=== PATIENT | female | born 1960 | race Caucasian/White ===

== ENCOUNTER → 2017-10-22 | Outpatient (CLI) | payer OTHER ==
[~2017-10-22] MED LIST: ALBU.083IS IH; ALBU3IS INH; ALBU90OI; ALBU90OI INH; ALBU90OI6 INH; ALPR.5 PO; AMLO5 PO; ASPI81CH PO; ASPI81EC PO; AZIT250 PO; Accuneb0.63 MG/3 INH; BACL10 PO; BENZ100A PO; CALACE667G PO; CALCA500CH PO; CALCIUM PO; CARI350; CARV6.25 PO; CILO50 PO; CLON.5 PO; CLOP75 PO; CYCL10 PO; CYCL25; DILT120ERA PO; DIPH12.5EL PO; DOXY100 PO; DULERA 100 MCG/13 GM INH; DULO30 PO; DULO60 PO; Desyrel150 MG; FLUSAL1005 IH; FLUSAL2505; Flonase 0.05% N16 GM; GABA300 PO; HYDACE5; HYDACE5325 PO; HYDCHL25 PO; LISI5 PO; METH5 PO; METO25ER PO; METO50ER PO; METTREX2.5 PO; Mucinex600 MG PO; NAPR220 PO; NAPR500 PO; NITR.4TPA TOP; NITR.6SL SL; OXYC10TA19 PO; PANT40 PO; PRAV20 PO; PRED10 PO; Prednisone20 MG PO; RXHYD5325 PO; SIMV10 PO; SPIRIVA RESPIMAT4 GM INH; TOPI50 PO; TRAZ50 PO; Ventolin/Prove6.7 GM INH
== END | disposition home or self-care (01) ==
LOC: LAB SHORT 08:22 → PLD 08:22
DX: D23.71 Other benign neoplasm of skin of right lower limb, including hip (principal)
CPT/HCPCS: 88305

== ENCOUNTER 2019-01-25 14:25 | Inpatient (IN) | payer OTHER ==
[~2019-01-25] VITALS: Ht 167.6 cm; Wt 85.4 kg
[~2019-01-25 14:25] MED LIST changes: +ATOR40TA PO; +CILO100 PO; +CORLANOR5 MG PO; +Isosorbide Mono30 MG PO; +NITR.8TP TOP; +Neurontin 300300 MG PO; +Nitrostat0.4 MG SL; +Paxil20 MG PO; +Tessalon Perle100 MG PO
[2019-01-25 15:13] LABS: BASOPHILS ABSOLUTE AUTO 0.02 K/mm3 (0.00-0.23); BASOPHILS PERCENT AUTO 0 % (0-2); EOSINOPHILS PERCENT AUTO 0 % (0-6); Hematocrit 38.2 % (33.0-51.0); Hemoglobin 12.4 g/dL (11.5-16.0); IMMATURE GRAN ABSOLUTE AUTO 0.15 K/mm3 (0.00-0.10); IMMATURE GRAN PERCENT AUTO 1 % (0-1); LYMPHOCYTES ABSOLUTE AUTO 1.02 K/mm3 (0.84-5.20); LYMPHOCYTES PERCENT AUTO 6 % (21-46); MONOCYTES ABSOLUTE AUTO 0.33 K/mm3 (0.16-1.47); MONOCYTES PERCENT AUTO 2 % (4-13); Mean Corpuscular HGB 32.5 pg (26.0-34.0); Mean Corpuscular HGB Conc 32.5 g/dL (31.5-36.5); Mean Corpuscular Volume 100 fL (80-100); Mean Platelet Volume 10.3 fL (9.1-12.4); NEUTROPHILS ABSOLUTE AUTO 14.83 K/mm3 (1.96-9.15); NEUTROPHILS PERCENT AUTO 91 % (41-73); Platelet Count 240 K/mm3 (150-400); RDW Coefficient Variation 14.5 % (11.7-14.2); RDW Standard Deviation 52.5 fL (35.1-46.3); Red Blood Cell Count 3.81 M/mm3 (3.80-5.20); White Blood Cell Count 16.35 K/mm3 (4.00-11.30)
[2019-01-25 15:29] LABS: Alanine Aminotransfer (ALT/SGP 26 U/L (12-78); Albumin, Blood 2.8 g/dL (3.4-5.0); Albumin/Globulin Ratio 0.7 (0.8-1.8); Alk Phos 83 U/L (50-136); Anion Gap 4 mmol/L (6-16); Aspartate Aminotrans (AST/SGOT 16 U/L (12-37); Bilirubin, Total 0.8 mg/dL (0.1-1.0); Blood Urea Nitrogen 11 mg/dL (8-24); Bun/Creatinine Ratio 13.4 (12.0-20.0); CO2, Blood 27 mmol/L (21-32); Calcium, Blood 9.2 mg/dL (8.5-10.1); Chloride, Blood 103 mmol/L (98-108); Creatinine, Blood 0.82 mg/dL (0.40-1.00); Glomerular Filtration Rate >60 (60-); Glucose, Blood 219 mg/dL (70-99); Potassium, Blood 4.1 mmol/L (3.5-5.5); Sodium, Blood 134 mmol/L (136-145); Total Protein, Blood 6.8 g/dL (6.4-8.2)
[2019-01-25 15:30] LABS: Troponin I <0.015 ng/mL (0.000-0.040)
[2019-01-25 19:16] LABS: International Normalized Ratio 0.98; Prothrombin Time Results 10.4 Sec (9.7-11.5)
[2019-01-26 03:43] LABS: BASOPHILS ABSOLUTE AUTO 0.02 K/mm3 (0.00-0.23); BASOPHILS PERCENT AUTO 0 % (0-2); EOSINOPHILS PERCENT AUTO 0 % (0-6); Hematocrit 37.1 % (33.0-51.0); Hemoglobin 11.8 g/dL (11.5-16.0); IMMATURE GRAN ABSOLUTE AUTO 0.14 K/mm3 (0.00-0.10); IMMATURE GRAN PERCENT AUTO 1 % (0-1); LYMPHOCYTES ABSOLUTE AUTO 0.95 K/mm3 (0.84-5.20); LYMPHOCYTES PERCENT AUTO 7 % (21-46); MONOCYTES ABSOLUTE AUTO 0.28 K/mm3 (0.16-1.47); MONOCYTES PERCENT AUTO 2 % (4-13); Mean Corpuscular HGB 32.7 pg (26.0-34.0); Mean Corpuscular HGB Conc 31.8 g/dL (31.5-36.5); Mean Platelet Volume 10.3 fL (9.1-12.4); NEUTROPHILS ABSOLUTE AUTO 13.32 K/mm3 (1.96-9.15); NEUTROPHILS PERCENT AUTO 91 % (41-73); Platelet Count 241 K/mm3 (150-400); RDW Coefficient Variation 14.5 % (11.7-14.2); Red Blood Cell Count 3.61 M/mm3 (3.80-5.20); White Blood Cell Count 14.71 K/mm3 (4.00-11.30)
[2019-01-26 03:44] LABS: Mean Corpuscular Volume 103 fL (80-100)
[2019-01-26 03:58] LABS: Anion Gap 5 mmol/L (6-16); Blood Urea Nitrogen 10 mg/dL (8-24); Bun/Creatinine Ratio 13.1 (12.0-20.0); CO2, Blood 28 mmol/L (21-32); Calcium, Blood 8.7 mg/dL (8.5-10.1); Chloride, Blood 108 mmol/L (98-108); Creatinine, Blood 0.77 mg/dL (0.40-1.00); Glomerular Filtration Rate >60 (60-); Glucose, Blood 149 mg/dL (70-99); Potassium, Blood 4.3 mmol/L (3.5-5.5); Sodium, Blood 141 mmol/L (136-145)
--- NOTE | 2019-01-26 05:53 | NUR ---
END OF SHIFT SUMMARY PT TRANSFERRED TO UNIT FROM ED. AUDIBLY COARSE LUNG SOUNDS, PT WITHOUT RESP DISTRESS. SPO2 >94% ON 2LNC. HR 90', BP STABLE. AXO X4. ORIENTED TO ROOM. BREATHING TREATMENTS PRN PROVIDED. FLUTTER VALVE ENCOURAGED. ADMIT PACKET COMPLETE. PT'S HR SORAIDA INTO 130'S PER MONITOR, SEE PROVIDER NOTE. ULTIMATELY, METOPROLOL 5 IV GIVEN, HR HAS RETURNED TO 90'S AND HAS MAINTAINED THERE, BP STABLE. NEW IV PLACED. PT HAS BEEN RESTING T/O SHIFT POST ASSESMENT. CALL LIGHT WITHIN REACH. USES APPROPRIATELY. PT CURRENTLY SITTING IN CHAIR. WILL CONTINUE TO MONITOR UNTIL SHIFT CHANGE.
--- NOTE | 2019-01-26 15:38 | NUR ---
NOTE PT AWAKE AND ALERT. SR/ST. NO SVT TODAY. CALLED PT PHARMACY AND CLARIFIED SEVERAL OF HER HOME MEDICATIONS. PT UP SBA TO BATHROOM D/T IV POLE. PT HAS CHRONIC PAIN. CALLED DR CAMEJO AND REQUESTED PT HOME PAIN REGIME. ORDERS RECEIVED. CONTINUE POT.
--- NOTE | 2019-01-26 20:30 | NUR ---
NOTE PT UP AD FEDER[place]. SR. NO SVT TODAY. PT LUNGS WITH EXP. WHEEZES. AUDIBLE WHEEZES WHEN SHE WALKS TO THE BATHROOM. SHE RELATED THAT SHE IS FEELING BETTER THAN YESTERDAY. DRY COUGH. NON PRODUCTIVE. SHE DID ASK TO GO OUT AND SMOKE. SHE SAID THAT SMOKING HELPS HER COUGH. VSS. MEDICATED FOR PAIN X1. PT RELATED THAT IT WAS EFFECTIVE FOR HER PAIN. CONTINUE POT.
--- NOTE | 2019-01-27 08:06 | NUR ---
END OF SHIFT SUMMARY NO ACUTEN CHANGES THIS SHIFT. HR REMAINED IN LOW 100'S, BP STABLE. NO INSTANCE OF SVT OR CP. BREATHING CONTINUES WITH EXP WHEEZES BUT DOES SOUND SOMEWHAT LESSENED. PRN BREATHING TREATMENTS AND TESSLON PERLS. FLUIDS CONTINUE TO INFUSE. PT INDEPENDENT IN ROOM. TITRATED TO 3LNC LAST NIGHT FOR COMFORT. OTHERWISE, PT SLEPT T/O NIGHT. USED CALL LIGHT APPROPRIATELY. REPORT GIVEN TO ONCOMING RN.
--- NOTE | 2019-01-27 17:49 | NUR ---
summary The pt has been alert, oriented, and cheerful today, without any complaints except for requests for pain medication (she takes these regularly at home) and once requested tesslon perle for her persistent, non productive but moist-sounding cough. She is using the flutter valve, but states that she has not been able to produce any sputum with her cough. She has been ambulatory to the bathroom, taking her IV pole with her, which is delivering continuous IV fluids per MD orders. Taking IV antiobiotics without any noted side effects. The pt states that she normally cannot have a bowel movement when she is not at home. States this occured when she was in hospital for the of her daughter many years ago, and happens even when she goes camping for a week. Denies discomfort, and states that she always goes back to regularity as soon as she is in her usual environment. Heart rate has been 90s to low 100s and blood pressure in the 100-125 range systolically. She was also weaned off of her oxygen today. States that she was prescribed oxygen once, but when she had an spo2 of 90% and no lower while at a doctor's visit, the oxgyen was discontinued by her insurance provider.
--- NOTE | 2019-01-27 19:29 | NUR ---
Bedside report was given to Deanna Bauer RN. The pt states that she just had an episode of sharp pain on her left chest, without shortness of breath, which resolved spontaneously. States that this is not an unusual experience for her as this occurs regularly. Will check Telemetry for events.
--- NOTE | 2019-01-27 19:35 | NUR ---
Spoke with security monitor tech, Micky Ferrer, who informs me that the pt's heart rate has been increasing and is sustaining at 125 bpm at this time, sinus tachycardia. Call to Lisa to request giving Toprol XL 50 mg now to bring the pt's total dose today to 100 mg, as ordered by Dr. Salazar today, to start tomorrow as 100mg Toprol XL daily.
[2019-01-27 23:34] LABS: Influenza A Negative (NEGATIVE); Influenza B Negative (NEGATIVE)
--- NOTE | 2019-01-28 05:21 | NUR ---
SHIFT SUMMARY PT SLEEPING IN ROOM COMFORTABLY AT THIS TIME. NO ACUTE CHANGES IN STATUS T/O NIGHT. PT SLEPT IN SHORT PERIODS, REPORTS SLEEPING POORLY DUE TO COUGH. PT WAS MEDICTED T/O NIGHT FOR CHRONIC PAIN, AND CHEST WALL PAIN R/T COUGHING. RESP EVEN UNLABORED AT REST, SOME DYSPNEA W/ EXERTION, SATS >92% ON RA. PT REQUESTED NC AT BEDSIDE W/ SMALL AMOUNT OF 02 FOR AFTER COUGHING EPISODES TO RECOVER. PT USING NC PRN. DENIES ANY CP, BUT DOES REPORT SOME MUSCULOSKELETAL PAIN FROM COUGHING. PT HAS KPAD IN PLACE TO HELP WITH COMFORT. NS INFUSING IN PIV AT 100ML/HR. PT ABLE TO STAND AND WALK TO RR W/O ASSIST, CALLS APPROPRIATELY FOR CORD MANAGMENT TO GET UP. CALL LIGHT IN REACH.
--- NOTE | 2019-01-28 12:35 | NUR ---
Spoke with the pt this morning regarding her pain in the left lower rib cage area. She states it does not hurt unless she moves or coughs. Medication for pain is effective, she states. Other chronic pain areas are not problamatic for her at this time. She has c/o difficulty expectorating sputum, and her cough is moist but non productive. States thepain also keeps her from coughing as much. This morning her spo2 was greater than 90% but she felt tight and like she needed a tiny bit of oxygen. She placed it on at 1 l/min for her own comfort. Dyspnea noted with ativity.
--- NOTE | 2019-01-28 16:47 | NUR ---
The pt is no longer feeling like she needs the supplemental oxgyen. Heart rate has remained less than 110 bpm today. States that she still feels some swelling, but continuous IVF were discontinued. Sheis eating and drinking well; ambulatory to the bathroom to void.
--- NOTE | 2019-01-29 04:57 | NUR ---
SHIFT SUMMARY PT SLEEEPING IN ROOM COMFORTABLY AT THIS TIME. NO ACUTE CHANGES IN STATUS T/O NIGHT. TP SLEPT WELL, REPORTS FEWER COUGHING EPISODES T/O NIGHT. PT ONLY ASKED FOR PAIN MEDS ONCE DURING SHIFT. RESP EVEN UNLABORED ON 1L O2 VIA NC, FOR PT COMFORT DURING SLEEP. DENIED ANY CP, REPORTED SOME RIB PAIN D/T COUGHING. PIV IS SL AT THIS TIME. PT ABLE TO STAND AND WALK TO RR W/O ASSIST. CALL LIGHT IN REACH.
--- NOTE | 2019-01-29 07:35 | NUR ---
ASSUMED CARE OF PT- REPORT COMPLETED WITH NIGHT CARLYN MYERS. PER REPORT PT CAN PROBABLY BE SWITCHED TO MEDICAL STATUS TODAY; WILL TALK TO DR CAMEJO ON MORNING ROUNDS. PT ALERT AND ORIENTED, INDEPENDENT IN THE ROOM. IV IS SL EXCEPT FOR ABX TX. PT CURRENTLY ON 1L VIA NC AT THIS TIME NEEDED (WHEN SHE HAS A COUGHING FIT). PT HAS BEEN C/O RIB PAIN RELATED TO THE COUGH CHEST XRAY NEGATIVE FOR FRACTURE. PT ON CHRONIC OXY 10MG, PAIN MEDS MANAGED WITH A PAIN SPECIALIST.
--- NOTE | 2019-01-29 18:43 | NUR ---
SHIFT SUMMARY- PT ALERT AND ORIENTED AND INDEPENDENT IN THE ROOM. PT SWITCHED TO MED NO TELE. CALL LIGHT IN REACH FAMILY AT THE BEDSIDE. PT HAS CHRONIC PAIN REQUIRING PAIN MANAGEMENT. PT TELE DC'D PER ORDER. PT RUNS A LITTLE TACHY IN THE LOW 100'S. HOME DOSE METOPROLOL RESUMED THIS MORNING. PT HAD A FULL SHOWER THIS AFTERNOON, PT BECAME SOB AFTER SHOWER WAS COMPLETED, O2 SATS 93% ON ROOM AIR HR 126. CALLED FOR BREATHING Tx AND GOT PT BACK TO BED HR IN THE ONE TEENS ONCE PT SETTLED BACK INTO BED POST BREATHING Tx. PT HAS NO S&S OF DISTRESS AT THIS TIME.
--- NOTE | 2019-01-30 05:19 | NUR ---
SHIFT SUMMARY PT SLEEPING IN ROOM COMFORTABLY AT THIS TIME. NO ACUTE CHNAGES IN STATUS T/O NIGHT. PT SLEPT WELL AFTER MIDNIGHT, REPORTS HAD A HARDER TIME SLEEPING TONIGHT. PT WAS MEDICATED TWICE FOR PAIN PER EMAR. FAMILY IN ROOM TO VISIT PT UNTIL MIDNIGHT. RESP EVEN UNLABORED AT REST, SOME DYSPNEA W/ EXERTION. SATS > 92%. PT REQUESTING O2 VIA NC FOR DYSPNIC EPSIDOES AFTER COUGHING. PT CONTINUES TO C/O PAIN IN RIBS FROM COUGHING. REPORTS STILL UNABLE TO COUGH UP SPUTUM. DENIES PAIN OTHER THAN CHRONIC BACK/HIP PAIN. PT CONCERNED ABOUT EDEMA IN UPPER THIGHS, PT EDUCATED AM PROVIDER WOULD BE NOTIFIED. CALL LIGHT IN REACH.
[2019-01-30] MEDS ORDERED: CLOT10 SS (10:16)
[2019-01-30] MEDS ORDERED: DOXY100 PO (10:17)
[2019-01-30] MEDS ORDERED: NICO21TP TOP (10:18)
[2019-01-30] MEDS ORDERED: Prednisone10 MG (10:21)
[2019-01-30] MEDS ORDERED: SPIR25 PO (10:22)
--- NOTE | 2019-01-30 11:36 | NUR ---
UPDATE PT ALERT AND ORIENTED. VS STABLE. O2 SATS REMAIN ABOVE 90% ON 1L NC. LS WHEEZES THROUGHOUT. DR. COLEMAN IN THIS AM WITH ORDERS FOR DISCHARGE. PT PARTICIPATED IN HOME O2 EVAL. DISCHARGE INSTRUCTIONS PROVIDED. NEW MEDICATIONS EDUCATED TO PT. ALL QUESTIONS ANSWERED. IV REMOVED AND INTACT. PT AWAITING OXYGEN TO BE BROUGHT IN AND THEN SHE WILL LEAVE VIA WC.
== END 2019-01-30 14:02 | disposition home or self-care (01) | DRG 871 ==
LOC: ER 14:25 → PCU 18:17
PROVIDERS: Emergency Medicine; Family Medicine; ADMIT Hospitalist
DX: A41.9 Sepsis, unspecified organism (principal); J18.9 Pneumonia, unspecified organism; J96.21 Acute and chronic respiratory failure with hypoxia; J44.0 Chronic obstructive pulmonary disease with (acute) lower respiratory infection; J44.1 Chronic obstructive pulmonary disease with (acute) exacerbation; I47.1 Supraventricular tachycardia; E87.1 Hypo-osmolality and hyponatremia; M48.50XA Collapsed vertebra, not elsewhere classified, site unspecified, initial encounter for fracture; F17.210 Nicotine dependence, cigarettes, uncomplicated; Z95.1 Presence of aortocoronary bypass graft
CPT/HCPCS: 36415; 71046; 80048; 80053; 83036; 83605; 83880; 84484; 85025; 85610; 85730; 87040; 87804; 93005; 93010; 94640; 94664; 94667; 94760; 94761; 96365; 96366; 96375; 98960; 99285-25; 99407; J2930; J7030; J7060; J7512; Q0163

== ENCOUNTER 2019-03-03 12:48 | Emergency (ER) | payer OTHER ==
[~2019-03-03] VITALS: Ht 170.2 cm; Wt 83.9 kg
[~2019-03-03 12:48] MED LIST changes: +CLOT10 SS; +NICO21TP TOP; +Prednisone10 MG; +SPIR25 PO
[2019-03-03 13:48] LABS: BASOPHILS ABSOLUTE AUTO 0.07 K/mm3 (0.00-0.23); BASOPHILS PERCENT AUTO 1 % (0-2); EOSINOPHILS ABSOLUTE AUTO 0.13 K/mm3 (0.00-0.68); EOSINOPHILS PERCENT AUTO 1 % (0-6); Hematocrit 39.1 % (33.0-51.0); Hemoglobin 12.6 g/dL (11.5-16.0); IMMATURE GRAN ABSOLUTE AUTO 0.08 K/mm3 (0.00-0.10); IMMATURE GRAN PERCENT AUTO 1 % (0-1); LYMPHOCYTES ABSOLUTE AUTO 2.64 K/mm3 (0.84-5.20); LYMPHOCYTES PERCENT AUTO 29 % (21-46); MONOCYTES ABSOLUTE AUTO 0.73 K/mm3 (0.16-1.47); MONOCYTES PERCENT AUTO 8 % (4-13); Mean Corpuscular HGB 32.6 pg (26.0-34.0); Mean Corpuscular HGB Conc 32.2 g/dL (31.5-36.5); Mean Corpuscular Volume 101 fL (80-100); Mean Platelet Volume 10.2 fL (9.1-12.4); NEUTROPHILS PERCENT AUTO 60 % (41-73); NRBC ABSOLUTE 0.02 K/mm3 (0.00-0.02); NRBC Auto 0.2 /100 WBC (0.0-0.2); Platelet Count 291 K/mm3 (150-400); RDW Standard Deviation 55.4 fL (35.1-46.3); Red Blood Cell Count 3.87 M/mm3 (3.80-5.20); White Blood Cell Count 9.05 K/mm3 (4.00-11.30)
[2019-03-03 14:14] LABS: Alanine Aminotransfer (ALT/SGP 33 U/L (12-78); Albumin, Blood 3.4 g/dL (3.4-5.0); Albumin/Globulin Ratio 0.9 (0.8-1.8); Alk Phos 108 U/L (50-136); Anion Gap 5 mmol/L (6-16); Aspartate Aminotrans (AST/SGOT 17 U/L (12-37); Bilirubin, Total 0.3 mg/dL (0.1-1.0); Blood Urea Nitrogen 7 mg/dL (8-24); Bun/Creatinine Ratio 8.8 (12.0-20.0); CO2, Blood 25 mmol/L (21-32); Calcium, Blood 9.3 mg/dL (8.5-10.1); Chloride, Blood 109 mmol/L (98-108); Creatinine, Blood 0.79 mg/dL (0.40-1.00); Globulin, Blood 3.6 g/dL (2.2-4.0); Glomerular Filtration Rate >60 (60-); Glucose, Blood 188 mg/dL (70-99); Potassium, Blood 3.8 mmol/L (3.5-5.5); Sodium, Blood 139 mmol/L (136-145); Troponin I <0.015 ng/mL (0.000-0.040)
== END 2019-03-03 16:30 | disposition home or self-care (01) ==
LOC: ER 12:48
PROVIDERS: Physician Assistant
DX: M25.561 Pain in right knee (principal); J44.9 Chronic obstructive pulmonary disease, unspecified; F17.200 Nicotine dependence, unspecified, uncomplicated; Z79.899 Other long term (current) drug therapy; Z88.5 Allergy status to narcotic agent; Z88.0 Allergy status to penicillin
CPT/HCPCS: 36415; 80053; 84484; 85025; 93971; 99284-25

== ENCOUNTER → 2019-03-30 | Outpatient (CLI) | payer OTHER | END | disposition home or self-care (01) | LOC: LAB SHORT 17:38 → LAB EV 17:38 | DX: R35.0 Frequency of micturition (principal) | CPT/HCPCS: 87077; 87086; 87186 ==

== ENCOUNTER → 2019-06-29 | Outpatient (CLI) | payer SELFPAY ==
[2019-06-29 14:50] LABS: BASOPHILS ABSOLUTE AUTO 0.09 K/mm3 (0.00-0.23); BASOPHILS PERCENT AUTO 1 % (0-2); EOSINOPHILS ABSOLUTE AUTO 0.17 K/mm3 (0.00-0.68); EOSINOPHILS PERCENT AUTO 1 % (0-6); Hematocrit 38.4 % (33.0-51.0); Hemoglobin 12.7 g/dL (11.5-16.0); IMMATURE GRAN ABSOLUTE AUTO 0.07 K/mm3 (0.00-0.10); IMMATURE GRAN PERCENT AUTO 0 % (0-1); LYMPHOCYTES ABSOLUTE AUTO 2.68 K/mm3 (0.84-5.20); LYMPHOCYTES PERCENT AUTO 15 % (21-46); MONOCYTES ABSOLUTE AUTO 0.85 K/mm3 (0.16-1.47); MONOCYTES PERCENT AUTO 5 % (4-13); Mean Corpuscular HGB 31.1 pg (26.0-34.0); Mean Corpuscular HGB Conc 33.1 g/dL (31.5-36.5); Mean Corpuscular Volume 94 fL (80-100); Mean Platelet Volume 10.6 fL (9.1-12.4); NEUTROPHILS ABSOLUTE AUTO 13.53 K/mm3 (1.96-9.15); NEUTROPHILS PERCENT AUTO 78 % (41-73); Platelet Count 323 K/mm3 (150-400); RDW Coefficient Variation 13.3 % (11.7-14.2); RDW Standard Deviation 45.7 fL (35.1-46.3); Red Blood Cell Count 4.09 M/mm3 (3.80-5.20); White Blood Cell Count 17.39 K/mm3 (4.00-11.30)
[2019-06-29 15:09] LABS: Alanine Aminotransfer (ALT/SGP 23 U/L (12-78); Albumin, Blood 3.3 g/dL (3.4-5.0); Albumin/Globulin Ratio 0.7 (0.8-1.8); Alk Phos 132 U/L (40-126); Anion Gap 10 mmol/L (6-16); Aspartate Aminotrans (AST/SGOT 21 U/L (12-37); Bilirubin, Total 0.3 mg/dL (0.1-1.0); Blood Urea Nitrogen 8 mg/dL (8-24); Bun/Creatinine Ratio 7.1 (12.0-20.0); CO2, Blood 30 mmol/L (21-32); Calcium, Blood 9.1 mg/dL (8.5-10.1); Chloride, Blood 97 mmol/L (98-108); Creatinine, Blood 1.12 mg/dL (0.40-1.00); Globulin, Blood 4.6 g/dL (2.2-4.0); Glomerular Filtration Rate 50 (60-); Glucose, Blood 123 mg/dL (70-99); Potassium, Blood 2.8 mmol/L (3.5-5.5); Sodium, Blood 137 mmol/L (136-145); Total Protein, Blood 7.9 g/dL (6.4-8.2)
[2019-06-29 15:10] LABS: Troponin I <0.017 ng/mL (0.000-0.040)
== END | disposition home or self-care (01) ==
LOC: LAB SHORT 14:46 → LAB EV 14:46
PROVIDERS: Physician Assistant Medical
DX: R07.9 Chest pain, unspecified (principal)
CPT/HCPCS: 80053; 84484; 85025; 85379

== ENCOUNTER → 2019-07-24 | Outpatient (CLI) | payer SELFPAY ==
[2019-07-24 15:30] LABS: Albumin, Blood 3.6 g/dL (3.4-5.0); Albumin/Globulin Ratio 0.9 (0.8-1.8); Bilirubin, Total 0.3 mg/dL (0.1-1.0); Bun/Creatinine Ratio 6.8 (12.0-20.0); Calcium, Blood 9.5 mg/dL (8.5-10.1); Creatinine, Blood 1.18 mg/dL (0.40-1.00); Globulin, Blood 4.1 g/dL (2.2-4.0); Potassium, Blood 3.7 mmol/L (3.5-5.5); Total Protein, Blood 7.7 g/dL (6.4-8.2)
== END | disposition home or self-care (01) ==
LOC: LAB SHORT 15:10 → LAB EV 15:10
PROVIDERS: Physician Assistant
DX: E87.6 Hypokalemia (principal)
CPT/HCPCS: 80053

== ENCOUNTER 2022-05-16 16:59 | Emergency (ER) | payer OTHER ==
[~2022-05-16] VITALS: Ht 170.2 cm; Wt 59.9 kg
[~2022-05-16 16:59] MED LIST changes: +ATORVASTATIN CA40 MG PO; +Amitriptyline H10 MG PO; +FLUT1DIS8 INH; +IPRAT-ALBUT 0.5-3 ML INH; +LEVFLO500 PO; +NARCAN4 M1 NS; +NYSTATIN SUSPENSION MT; +TAMIFLU PO
[2022-05-16 18:06] LABS: BASOPHILS PERCENT AUTO 1 % (0-2); EOSINOPHILS ABSOLUTE AUTO 0.27 K/mm3 (0.00-0.68); EOSINOPHILS PERCENT AUTO 2 % (0-6); Hemoglobin 13.2 g/dL (11.5-16.0); IMMATURE GRAN PERCENT AUTO 1 % (0-1); LYMPHOCYTES ABSOLUTE AUTO 2.54 K/mm3 (0.84-5.20); LYMPHOCYTES PERCENT AUTO 18 % (21-46); MONOCYTES ABSOLUTE AUTO 0.63 K/mm3 (0.16-1.47); MONOCYTES PERCENT AUTO 5 % (4-13); Mean Corpuscular HGB 31.1 pg (26.0-34.0); Mean Corpuscular Volume 94 fL (80-100); NEUTROPHILS PERCENT AUTO 74 % (41-73); Platelet Count 323 K/mm3 (150-400); RDW Coefficient Variation 15.4 % (11.7-14.2); Red Blood Cell Count 4.25 M/mm3 (3.80-5.20); White Blood Cell Count 14.14 K/mm3 (4.00-11.30)
[2022-05-16 18:35] LABS: Albumin, Blood 2.9 g/dL (3.4-5.0); Albumin/Globulin Ratio 0.6 (0.8-1.8); Bilirubin, Total 0.5 mg/dL (0.1-1.0); Bun/Creatinine Ratio 16.6 (12.0-20.0); Calcium, Blood 10.2 mg/dL (8.5-10.1); Creatinine, Blood 0.6 mg/dL (0.40-1.00); Globulin, Blood 4.8 g/dL (2.2-4.0); Potassium, Blood 3.9 mmol/L (3.5-5.5); Total Protein, Blood 7.7 g/dL (6.4-8.2)
[2022-05-16 19:07] LABS: Influenza A, PCR NEGATIVE (NEGATIVE); Influenza B, PCR NEGATIVE (NEGATIVE); Resp Syncytial Virus, PCR NEGATIVE (NEGATIVE); SARS-Cov-2 (COVID-19) PCR, MMC NEGATIVE (NEGATIVE)
[2022-05-16] MEDS ORDERED: METPRE4DP PO (22:05)
[2022-05-16] MEDS ORDERED: AZIT250 PO (22:05)
== END 2022-05-16 22:20 | disposition home or self-care (01) ==
LOC: ER 16:59
PROVIDERS: Emergency Medicine
DX: J44.0 Chronic obstructive pulmonary disease with (acute) lower respiratory infection (principal); J18.9 Pneumonia, unspecified organism; J44.1 Chronic obstructive pulmonary disease with (acute) exacerbation; F17.210 Nicotine dependence, cigarettes, uncomplicated; Z88.0 Allergy status to penicillin; Z88.5 Allergy status to narcotic agent; Z88.2 Allergy status to sulfonamides; Z79.899 Other long term (current) drug therapy; Z79.52 Long term (current) use of systemic steroids
CPT/HCPCS: 0241U; 36415; 71046; 71260; 80053; 83605; 83880; 84484; 85025; 85379; 93005; 93010; 94640; 94664; 96374; 99285-25; A9270; J2930; Q9967

== ENCOUNTER 2022-12-31 00:59 | Inpatient (IN) | payer OTHER ==
[~2022-12-31] VITALS: Ht 160 cm; Wt 155.7 kg
[2022-12-31] VITALS (8 sets, daily range): BP systolic 93–127; BP diastolic 62–84
[~2022-12-31 00:59] MED LIST changes: +METPRE4DP PO
[2022-12-31 01:17] LABS: BASOPHILS ABSOLUTE AUTO 0.07 K/mm3 (0.00-0.23); BASOPHILS PERCENT AUTO 0 % (0-2); EOSINOPHILS ABSOLUTE AUTO 0.01 K/mm3 (0.00-0.68); EOSINOPHILS PERCENT AUTO 0 % (0-6); Hematocrit 42.4 % (33.0-51.0); IMMATURE GRAN ABSOLUTE AUTO 0.31 K/mm3 (0.00-0.10); IMMATURE GRAN PERCENT AUTO 1 % (0-1); LYMPHOCYTES ABSOLUTE AUTO 3.23 K/mm3 (0.84-5.20); LYMPHOCYTES PERCENT AUTO 10 % (21-46); MONOCYTES ABSOLUTE AUTO 1.03 K/mm3 (0.16-1.47); MONOCYTES PERCENT AUTO 3 % (4-13); Mean Corpuscular HGB 30.6 pg (26.0-34.0); Mean Corpuscular Volume 93 fL (80-100); Mean Platelet Volume 10.5 fL (9.1-12.4); NEUTROPHILS ABSOLUTE AUTO 26.88 K/mm3 (1.96-9.15); NEUTROPHILS PERCENT AUTO 85 % (41-73); Platelet Count 291 K/mm3 (150-400); RDW Coefficient Variation 14.4 % (11.7-14.2); Red Blood Cell Count 4.57 M/mm3 (3.80-5.20); White Blood Cell Count 31.53 K/mm3 (4.00-11.30)
[2022-12-31 01:20] LABS: Base Excess Venous 6.8 mmol/L; Bicarbonate Venous 28.9 mmol/L (24.0-30.0); PCO2 Venous 44.7 mmHg (38-42); pH Blood Venous 7.45 (7.34-7.37)
[2022-12-31 02:39] LABS: Influenza A, PCR NEGATIVE (NEGATIVE); Influenza B, PCR NEGATIVE (NEGATIVE); Resp Syncytial Virus, PCR NEGATIVE (NEGATIVE); SARS-Cov-2 (COVID-19) PCR, MMC NEGATIVE (NEGATIVE)
[2022-12-31 02:53] LABS: Albumin, Blood 2.8 g/dL (3.4-5.0); Albumin/Globulin Ratio 0.5 (0.8-1.8); Bilirubin, Total 0.5 mg/dL (0.1-1.0); Bun/Creatinine Ratio 12.7 (12.0-20.0); Calcium, Blood 9.9 mg/dL (8.5-10.1); Creatinine, Blood 0.87 mg/dL (0.40-1.00); Globulin, Blood 5.4 g/dL (2.2-4.0); Potassium, Blood 4.1 mmol/L (3.5-5.5); Total Protein, Blood 8.2 g/dL (6.4-8.2)
[2022-12-31] MEDS ORDERED: NITR.4SL SL (04:59)
[2022-12-31] MEDS ORDERED: CILO100 PO (05:00)
[2022-12-31] MEDS ORDERED: Isosorbide Mono30 MG PO (05:03)
[2022-12-31] MEDS ORDERED: BENZ100A PO (05:03)
[2022-12-31] MEDS ORDERED: SPIR50 PO (05:04)
[2022-12-31] MEDS ORDERED: Flonase 0.05% N16 GM (05:04)
[2022-12-31] MEDS ORDERED: GABA400 PO (05:05)
[2022-12-31] MEDS ORDERED: MAGCIT300 PO (05:08)
--- NOTE | 2022-12-31 06:44 | NUR ---
ARRIVAL TO PCU/SHIFT SUMMARY RECEIVED REPORT FROM CLINICAL INFORMATICS DIRECTOR ES ESCALERA, PT SHORTLY ARRIVED TO PCU ~0435 THIS AM. TRANSFERRED FROM ER [facility] TO [facility] BED VIA 1 STAFF ASSIST. A/Ox4 AND COOPERATIVE WITH CARE. ANSWERS QUESTIONS APPROPRIATELY AND ABLE TO MAKE HER NEEDS KNOWN. CARDIAC, ARRIVED ST 120-130'S, DENIES ANY CP, PRESSURE, OR DIZZINESS. SBP SOFT BUT STABLE RANGING 90-100'S WITH MAP >65. INTERMITTENT PVC'S NOTED. RESPIRATORY, ARRIVED ON 5L VIA NC SATURATING 92-93%. HAS SINCE BEEN TIRATED DOWN TO 3-4L VIA NC. INTERMITTENT MOIST COUGH BOTED WITH BILAT. CRACKLES HEARD IN THE LUNG BASES. DYSPNEA NOTED WITH EXERTION WELL TACYPNEA. RECOVERS WELL THOUGH. GI/, ABLE TO AMBULATE TO BSC TO VOID/BM. BS PRESENT IN ALL QUADRANTS, DENIES ABD PAIN AT THIS TIME. ASSESSED PT FOR RISKS OF ANY IGNITION SOURCES WELL BEHAVIORS FOR INCREASED RISKS OF FIRE DANGER. PT EDUCATED ON COMMON SOURCES OF IGNITION WELL NEED TO KEEP A SAFE ENVIRONMENT. PT VOICED UNDERSTANDING. NO NEW ORDERS AT THIS TIME, WILL REPORT TO ONCOMING RN. RONNY MOMIN OF THIS NOTE.
--- NOTE | 2022-12-31 17:24 | NUR ---
SHIFT SUMMARY PT REMAINS ALERT AND ORIENTED. BP STABLE. O2 SATS REMAIN ABOVE 90% ON 3L NC. HR REMAINS SINUS TACH 110-120'S. PT COMPLAINS OF OCCASIONAL BACK PAIN THAT IS CHRONIC AND MEDICATED PER EMAR. PT PROVIDED RECLINER FOR COMFORT. PT REQUESTED PUREWICK DUE TO WORK OF BREATHING WITH ACTIVITY. WILL CONTINUE TO MONITOR AND REPORT TO ONCOMING RN
[2022-12-31] MEDS ORDERED: ZANAFLEX413 PO (20:23)
[2022-12-31] MEDS ORDERED: MONT10T PO (20:24)
[2022-12-31] MEDS ORDERED: CLOBETASOL EMOL15 G1 (22:10)
--- NOTE | 2023-01-01 00:41 | NUR ---
PHYSICIAN COMMUNICATION ~2300 THIS SHIFT, PT'S HR NOTED TO BE SUSTAINING IN THE 120-130 RANGE WITH INTERMITTENT JUMPS INTO THE 140'S. PT DENIES CP, PRESSURE, PALPITATIONS, OR DIZZINESS AT THE TIME. NIGHT RESIDENT DR. RICE NOTIFIED TO WHICH PROVIDER CAME TO BEDSIDE TO EVALUATE PT. NO NEW ORDERS GIVEN AFTER PROVIDER ASSESSMENT.
[2023-01-01 03:50] VITALS: BP 104/61
[2023-01-01 04:04] LABS: BASOPHILS ABSOLUTE AUTO 0.04 K/mm3 (0.00-0.23); BASOPHILS PERCENT AUTO 0 % (0-2); EOSINOPHILS ABSOLUTE AUTO 0.01 K/mm3 (0.00-0.68); EOSINOPHILS PERCENT AUTO 0 % (0-6); Hematocrit 36.6 % (33.0-51.0); Hemoglobin 12.4 g/dL (11.5-16.0); IMMATURE GRAN ABSOLUTE AUTO 0.13 K/mm3 (0.00-0.10); IMMATURE GRAN PERCENT AUTO 1 % (0-1); LYMPHOCYTES ABSOLUTE AUTO 1.22 K/mm3 (0.84-5.20); LYMPHOCYTES PERCENT AUTO 6 % (21-46); MONOCYTES ABSOLUTE AUTO 0.46 K/mm3 (0.16-1.47); MONOCYTES PERCENT AUTO 2 % (4-13); Mean Corpuscular HGB 30.8 pg (26.0-34.0); Mean Corpuscular HGB Conc 33.9 g/dL (31.5-36.5); Mean Corpuscular Volume 91 fL (80-100); Mean Platelet Volume 10.6 fL (9.1-12.4); NEUTROPHILS ABSOLUTE AUTO 20.07 K/mm3 (1.96-9.15); NEUTROPHILS PERCENT AUTO 92 % (41-73); Platelet Count 261 K/mm3 (150-400); RDW Coefficient Variation 14.2 % (11.7-14.2); RDW Standard Deviation 47.9 fL (35.1-46.3); Red Blood Cell Count 4.02 M/mm3 (3.80-5.20); White Blood Cell Count 21.93 K/mm3 (4.00-11.30)
[2023-01-01 04:34] LABS: Albumin, Blood 2.5 g/dL (3.4-5.0); Albumin/Globulin Ratio 0.6 (0.8-1.8); Bilirubin, Total 0.3 mg/dL (0.1-1.0); Calcium, Blood 9.6 mg/dL (8.5-10.1); Creatinine, Blood 0.84 mg/dL (0.40-1.00); Globulin, Blood 4.3 g/dL (2.2-4.0); Magnesium, Blood 2.5 mg/dL (1.6-2.4); Phosphorus, Blood 3.2 mg/dL (2.5-4.9); Potassium, Blood 4.7 mmol/L (3.5-5.5); Total Protein, Blood 6.8 g/dL (6.4-8.2)
--- NOTE | 2023-01-01 06:44 | NUR ---
SHIFT SUMMARY A/Ox4 AND COOPERATIVE WITH CARE. ANSWERS QUESTIONS APPROPRIATELY AND ABLE TO MAKE HER NEEDS KNOWN. CAN BE IRRITABLE WITH STAFF AT TIMES, BUT NO ACUTE EVENTS OVERNIGHT. CARDIAC, REMAINS IN ST 120-130'S WITH INTERMITTENT PVC'S. OCCASIONALLY TOUCHES THE 140'S, BUT DOES NOT SUSTAIN. SEE PHYSICIAN COMMUNICATION NOTE FOR MORE DETAILS. DENIES CP, PRESSURE, OR DIZZINESS T/O THE NIGHT. SBP HAS BEEN STABLE RANGING 100-120'S. RESPIRATORY, MAINTAINS SPO2 90-94% ON 3-5L VIA NC. REPORTS INTERMITTENT EPISODES OF SOB EVEN WHEN AT REST. DYSPNEA NOTED WITH MINIMAL EXERTION, BUT DOES RECOVER WITHIN 2-3 MINUTES. GI/, ABLE TO AMBULATE [place] [facility] [place] [place] 1 STAFF ASSIST. INTERMITTENT USE OF PURWICK DURING THE NIGHT DUE TO INCREASING WEAKNESS WELL HIGH O2 DEMAND. CONTINUES TO VOID LARRY COLORED URINE. NO BM FOR THIS SHIFT. PAIN HAS BEEN MANAGED WELL PER EMAR. ASSESSED PT FOR RISKS OF ANY IGNITION SOURCES WELL BEHAVIORS FOR INCREASED RISKS OF FIRE DANGER. PT EDUCATED ON COMMON SOURCES OF IGNITION WELL NEED TO KEEP A SAFE ENVIRONMENT. PT VOICED UNDERSTANDING. NO NEW ORDERS AT THIS TIME, WILL REPORT TO ONCOMING RN. RONNY MOMIN OF THIS NOTE.
[2023-01-01 07:52] VITALS: BP 122/66
[2023-01-01 12:11] VITALS: BP 137/87
[2023-01-01 16:02] VITALS: BP 129/79
--- NOTE | 2023-01-01 18:14 | NUR ---
RECEIVED REPORT FROM TANESHA LEMOS RN.
--- NOTE | 2023-01-01 18:25 | NUR ---
SHIFT SUMMARY; ASSUMED CARE AT 0700. A/A/OX4 T/O SHIFT. MOVES SELF ON BED AND SITS AT SIDE OF BED MOST OF DAY. 3-5L O2 VIA NC. CPAP IN ROOM, PT USES AFTER EXERTION FOR SEVERAL MINUTES AND SATURATIONS RECOVER. DROPS TO MID 80'S WITH EXERTION AND RECOVERS TO LOW 90'S WITHIN 2-3 MINUTES. RT NEBS PER ORDERS BY RT. POWER GLIDE PLACED TODAY TO LUCIA. UP TO BEDSIDE COMMODE WITH SBA. NO ACUTE CHANGES DURING SHIFT. STATUS CHANGED TO MEDICAL AND REPORT GIVEN TO EMILIA ALCOCER JUST PRIOR TO SHIFT CHANGE.
[2023-01-01 19:55] VITALS: BP 128/82
[2023-01-01 21:46] VITALS: BP 124/75
[2023-01-02 05:09] LABS: BASOPHILS ABSOLUTE AUTO 0.02 K/mm3 (0.00-0.23); BASOPHILS PERCENT AUTO 0 % (0-2); EOSINOPHILS PERCENT AUTO 0 % (0-6); Hematocrit 35.8 % (33.0-51.0); IMMATURE GRAN ABSOLUTE AUTO 0.11 K/mm3 (0.00-0.10); IMMATURE GRAN PERCENT AUTO 1 % (0-1); LYMPHOCYTES ABSOLUTE AUTO 1.33 K/mm3 (0.84-5.20); LYMPHOCYTES PERCENT AUTO 8 % (21-46); MONOCYTES ABSOLUTE AUTO 0.47 K/mm3 (0.16-1.47); MONOCYTES PERCENT AUTO 3 % (4-13); Mean Corpuscular HGB 30.8 pg (26.0-34.0); Mean Corpuscular HGB Conc 33.5 g/dL (31.5-36.5); Mean Corpuscular Volume 92 fL (80-100); Mean Platelet Volume 10.2 fL (9.1-12.4); NEUTROPHILS ABSOLUTE AUTO 14.56 K/mm3 (1.96-9.15); NEUTROPHILS PERCENT AUTO 88 % (41-73); Platelet Count 269 K/mm3 (150-400); RDW Coefficient Variation 14.4 % (11.7-14.2); Red Blood Cell Count 3.89 M/mm3 (3.80-5.20); White Blood Cell Count 16.49 K/mm3 (4.00-11.30)
[2023-01-02 05:13] VITALS: BP 115/75
--- NOTE | 2023-01-02 05:24 | NUR ---
SHIFT SUMMARY PT IS ALERT AND ORIENTED TO PERSON/SELF,PLACE, TIME AND SITUATION. PT IS ON 7LPM VIA HIGH FLOW NASAL CANNULA. PT IS COOPERATIVE WITH CARE, SBA TO THE BEDSIDE COMMODE. PT CALL APPROPRIATELY AND IS ABLE TO MAKE HER NEEDS KNOWN. PT PAIN ASSESSED-PT HAS NO COMPLAINTS OF PAIN NOTED THIS SHIFT. PT WEARS HER CPAP NEEDED, PT IS ON CONTINUOUS BIOX MAINTAININGS SATS >94%. BED IS LOCKED IN THE LOWEST POSITION WITH CALL LIGHT IN REACH. NO S/S OF DISTRESS NOTED AT THIS TIME.
[2023-01-02 05:41] LABS: Bun/Creatinine Ratio 28.8 (12.0-20.0); Calcium, Blood 9.8 mg/dL (8.5-10.1); Creatinine, Blood 0.87 mg/dL (0.40-1.00)
[2023-01-02 07:41] VITALS: BP 127/72
[2023-01-02 15:46] VITALS: BP 121/72
--- NOTE | 2023-01-02 16:00 | NUR ---
NO ACUTE CHANGES. PT AOX4 AND COOPERATIVE OF CARE. CALLS APPROPRIATELY AND IS A ONE PERSON STAND BY TO RESTROOM. PT DOES SEEM TO HAVE SOME HEART RATE SPIKES WHEN SHE TRANSFERS HER RESPIRATION INCREASE TELE REPORTED THE HIGHEST AT 160, BUT SOON SHE WAS SITTING BACK DOWN TO 102. CALL LIGHT IS WITHIN REACH WILL CONTINUE TO MONITOR.
[2023-01-02 21:18] VITALS: BP 135/87
[2023-01-03 05:44] LABS: BASOPHILS ABSOLUTE AUTO 0.03 K/mm3 (0.00-0.23); BASOPHILS PERCENT AUTO 0 % (0-2); EOSINOPHILS PERCENT AUTO 0 % (0-6); Hematocrit 37.3 % (33.0-51.0); Hemoglobin 12.3 g/dL (11.5-16.0); IMMATURE GRAN ABSOLUTE AUTO 0.18 K/mm3 (0.00-0.10); IMMATURE GRAN PERCENT AUTO 1 % (0-1); LYMPHOCYTES ABSOLUTE AUTO 1.61 K/mm3 (0.84-5.20); LYMPHOCYTES PERCENT AUTO 11 % (21-46); MONOCYTES ABSOLUTE AUTO 0.53 K/mm3 (0.16-1.47); MONOCYTES PERCENT AUTO 4 % (4-13); Mean Corpuscular HGB 30.5 pg (26.0-34.0); Mean Corpuscular Volume 93 fL (80-100); Mean Platelet Volume 9.8 fL (9.1-12.4); NEUTROPHILS ABSOLUTE AUTO 11.97 K/mm3 (1.96-9.15); NEUTROPHILS PERCENT AUTO 84 % (41-73); Platelet Count 260 K/mm3 (150-400); RDW Coefficient Variation 14.4 % (11.7-14.2); RDW Standard Deviation 49.1 fL (35.1-46.3); Red Blood Cell Count 4.03 M/mm3 (3.80-5.20); White Blood Cell Count 14.32 K/mm3 (4.00-11.30)
[2023-01-03 06:12] LABS: Bun/Creatinine Ratio 29.4 (12.0-20.0); Calcium, Blood 9.7 mg/dL (8.5-10.1); Creatinine, Blood 0.82 mg/dL (0.40-1.00); Potassium, Blood 4.9 mmol/L (3.5-5.5)
[2023-01-03 06:37] VITALS: BP 116/61
--- NOTE | 2023-01-03 18:05 | NUR ---
NO ACUTE CHANGES PT CONTINUES ON 5L AND IS A STANDBY ASSIST. PT CALLS APPROPRIATELY. PT TREATED FOR COUGH AND PAIN PER EMAR. RT CALLED X1. PT SITTING UP IN CHAIR WATCHING TV CALL LIGHT WITHIN REACH. NO DISTRESS NOTED WILL CONTINUE TO MONITOR.
[2023-01-03 19:32] VITALS: BP 122/71
[2023-01-04 03:31] VITALS: BP 118/75
--- NOTE | 2023-01-04 05:32 | NUR ---
VERY PLEASENT PT A/O VSS ON 5L NC AND SATING 96%. NO C/O PAIN LITTLE DISTRESS DUE TO HER COPD. PT SLEPT FOR PART OF THE NIGHT LOTS OF COUGHING REQUESTING TESSILON PEARLS. OTHER THAN THAT NO REAL COMPLAINTS. 0345 O2 DECREASED TO 3L NC AND SO FAR AT 530 PT CONT TO SAT 96%. WILL CONT MONITORING .
[2023-01-04 05:39] LABS: BASOPHILS ABSOLUTE AUTO 0.04 K/mm3 (0.00-0.23); BASOPHILS PERCENT AUTO 0 % (0-2); EOSINOPHILS PERCENT AUTO 0 % (0-6); Hematocrit 38.4 % (33.0-51.0); Hemoglobin 12.8 g/dL (11.5-16.0); IMMATURE GRAN ABSOLUTE AUTO 0.25 K/mm3 (0.00-0.10); IMMATURE GRAN PERCENT AUTO 2 % (0-1); LYMPHOCYTES ABSOLUTE AUTO 1.72 K/mm3 (0.84-5.20); LYMPHOCYTES PERCENT AUTO 11 % (21-46); MONOCYTES ABSOLUTE AUTO 0.57 K/mm3 (0.16-1.47); MONOCYTES PERCENT AUTO 4 % (4-13); Mean Corpuscular HGB 30.8 pg (26.0-34.0); Mean Corpuscular HGB Conc 33.3 g/dL (31.5-36.5); Mean Corpuscular Volume 93 fL (80-100); Mean Platelet Volume 9.8 fL (9.1-12.4); NEUTROPHILS ABSOLUTE AUTO 12.52 K/mm3 (1.96-9.15); NEUTROPHILS PERCENT AUTO 83 % (41-73); Platelet Count 280 K/mm3 (150-400); RDW Coefficient Variation 14.2 % (11.7-14.2); Red Blood Cell Count 4.15 M/mm3 (3.80-5.20)
[2023-01-04 07:34] VITALS: BP 122/70
[2023-01-04 15:15] VITALS: BP 114/80
--- NOTE | 2023-01-04 19:44 | NUR ---
SHIFT SUMMARY PATIENT WITH INCREASING SHORTNESS OF BREATH THIS AFTERNOON BUT RELIEVED BY MORE FREQUENT BREATHING TREATMENTS. MEDICATED FOR PAIN PER EMAR. BED IN LOW POSITION. CALL LIGHT IN REACH. PATIENT CALLS APPROPRIATELY.
[2023-01-04 20:07] VITALS: BP 119/79
--- NOTE | 2023-01-05 05:49 | NUR ---
SHIFT SUMMARY PT IS ALERT AND ORIENTED TO PERSON, PLACE, TIME, AND SITUATION. PT IS PLEASANT AND COOPERATIVE WITH CARE. PT DENIES CHEST PAIN/PRESSURE/TIGHTNESS. PT C/O BACK PAIN REPORTED TO BE CHRONIC, SOME DISCOMFORT WITH COUGHING-MEDICATED PER EMAR. PT CALLS APPROPRIATELY AND IS ABLE TO MAKE HER NEEDS KNOWN. OXYGEN IS RUNNING AT 4LPM VIA NASAL CANNULA WITH SPO2 >94% AT REST VIA CONTINOUS BIOX. NO ACUTE CHANGES OR S/S OF DISTRESS NOTED AT THIS TIME.
[2023-01-05 06:17] VITALS: BP 97/59
[2023-01-05 07:35] VITALS: BP 124/62
[2023-01-05 08:36] LABS: Hematocrit 42.9 % (33.0-51.0); Mean Corpuscular HGB 30.2 pg (26.0-34.0); Mean Corpuscular HGB Conc 32.6 g/dL (31.5-36.5); Mean Corpuscular Volume 93 fL (80-100); Mean Platelet Volume 9.4 fL (9.1-12.4); Platelet Count 308 K/mm3 (150-400); RDW Coefficient Variation 14.2 % (11.7-14.2); RDW Standard Deviation 48.3 fL (35.1-46.3); Red Blood Cell Count 4.63 M/mm3 (3.80-5.20); White Blood Cell Count 15.21 K/mm3 (4.00-11.30)
[2023-01-05 09:11] LABS: Bun/Creatinine Ratio 27.6 (12.0-20.0); Calcium, Blood 10.1 mg/dL (8.5-10.1); Creatinine, Blood 0.87 mg/dL (0.40-1.00); Potassium, Blood 4.2 mmol/L (3.5-5.5)
[2023-01-05 09:24] LABS: BASOPHILS PERCENT MAN 0 % (0-2); EOSINOPHILS ABSOLUTE MAN 0.15 K/mm3 (0.00-0.68); EOSINOPHILS PERCENT MAN 1 % (0-6); LYMPHOCYTES % ATYPICAL MANUAL 1 % (0-0); LYMPHOCYTES ABSOLUTE MAN 3.34 K/mm3 (0.84-5.20); LYMPHOCYTES PERCENT MAN 21 % (21-46); MONOCYTES ABSOLUTE MAN 0.76 K/mm3 (0.16-1.47); MONOCYTES PERCENT MAN 5 % (4-13); MYELOCYTE ABSOLUTE MAN 0.15 K/mm3 (0.00-0.00); MYELOCYTE PERCENT MAN 1 % (0-0); NEUTROPHILS ABSOLUTE MAN 10.79 K/mm3 (1.96-9.15); SEG NEUTROPHILS PERCENT MAN 71 % (41-73); TOTAL CELLS COUNTED 100
[2023-01-05] MEDS ORDERED: LEVO750 PO (11:52)
[2023-01-05] MEDS ORDERED: METF500 PO (11:54)
[2023-01-05] MEDS ORDERED: NICO21TP TOP (11:54)
[2023-01-05] MEDS ORDERED: NYSTATIN100000 U10 MT (11:55)
[2023-01-05] MEDS ORDERED: Prednisone20 MG PO (11:56)
--- NOTE | 2023-01-05 14:48 | NUR ---
DISCHARGE SUMMARY PATIENT DISCHARGED THIS SHIFT, MIDLINE REMOVED PRIOR TO DISCHARGE, NO COMPLICATIONS. DISCHARGE PACKET GIVEN AND EXPLAINED, QUESTIONS ANSWERED, VERBALIZED UNDERSTANDING. MEDS FAXED TO [facility] PER PATIENT REQUEST DUE TO THE WEEKEND.
== END 2023-01-05 13:50 | disposition home or self-care (01) | DRG 871 ==
LOC: ER 00:59 → MEDS 03:10 → PCU 03:10 → MEDS 01-01 19:01
PROVIDERS: Family Medicine; Hospitalist; Student in an Organized Health Care Education/Training Program; ADMIT Internal Medicine
PROC: 5A09457 Assistance with Respiratory Ventilation, 24-96 Consecutive Hours, Continuous Positive Airway Pressure (ICD-10-PCS; principal; 2022-12-31)
PROC: 3E03329 Introduction of Other Anti-infective into Peripheral Vein, Percutaneous Approach (ICD-10-PCS; 2022-12-31)
PROC: 4A033R1 Measurement of Arterial Saturation, Peripheral, Percutaneous Approach (ICD-10-PCS; 2022-12-31)
DX: A41.9 Sepsis, unspecified organism (principal); J18.9 Pneumonia, unspecified organism; J96.21 Acute and chronic respiratory failure with hypoxia; J44.0 Chronic obstructive pulmonary disease with (acute) lower respiratory infection; F11.20 Opioid dependence, uncomplicated; E87.1 Hypo-osmolality and hyponatremia; J44.1 Chronic obstructive pulmonary disease with (acute) exacerbation; F17.213 Nicotine dependence, cigarettes, with withdrawal; R65.20 Severe sepsis without septic shock; E11.9 Type 2 diabetes mellitus without complications; I25.10 Atherosclerotic heart disease of native coronary artery without angina pectoris; G89.29 Other chronic pain; M54.50 Low back pain, unspecified; F32.9 Major depressive disorder, single episode, unspecified; I11.0 Hypertensive heart disease with heart failure; I50.9 Heart failure, unspecified; M19.90 Unspecified osteoarthritis, unspecified site; M79.7 Fibromyalgia; Z99.81 Dependence on supplemental oxygen; Z88.0 Allergy status to penicillin; Z88.2 Allergy status to sulfonamides; Z88.5 Allergy status to narcotic agent; Z88.1 Allergy status to other antibiotic agents; Z88.8 Allergy status to other drugs, medicaments and biological substances; Z91.018 Allergy to other foods; Z95.0 Presence of cardiac pacemaker; Z95.5 Presence of coronary angioplasty implant and graft; Z79.02 Long term (current) use of antithrombotics/antiplatelets; Z71.6 Tobacco abuse counseling
CPT/HCPCS: 0241U; 36415; 71045; 71046; 80048; 80053; 82803; 82947; 83605; 83735; 83880; 84100; 84145; 84484; 85025; 87040; 93005; 93010; 93971; 94640; 94660; 94664; 94762; 96365; 96366; 96367; 96375; 97161; 97530; 99285-25; A9270; C1751; J0692; J1650; J1885; J1956; J2920; J3370; J7030; J7050; J7512

== ENCOUNTER 2023-02-11 16:37 | Inpatient (IN) | payer OTHER ==
[~2023-02-11] VITALS: Ht 170.2 cm; Wt 70.0 kg
[~2023-02-11 16:37] MED LIST changes: +CLOBETASOL EMOL15 G1; +GABA400 PO; +LEVO750 PO; +MAGCIT300 PO; +METF500 PO; +MONT10T PO; +NITR.4SL SL; +NYSTATIN100000 U10 MT; +SPIR50 PO; +ZANAFLEX413 PO
[2023-02-11 17:27] LABS: BASOPHILS ABSOLUTE AUTO 0.11 K/mm3 (0.00-0.23); BASOPHILS PERCENT AUTO 1 % (0-2); EOSINOPHILS ABSOLUTE AUTO 0.06 K/mm3 (0.00-0.68); EOSINOPHILS PERCENT AUTO 0 % (0-6); Hematocrit 42.7 % (33.0-51.0); Hemoglobin 14.1 g/dL (11.5-16.0); IMMATURE GRAN ABSOLUTE AUTO 0.23 K/mm3 (0.00-0.10); IMMATURE GRAN PERCENT AUTO 1 % (0-1); LYMPHOCYTES ABSOLUTE AUTO 3.57 K/mm3 (0.84-5.20); LYMPHOCYTES PERCENT AUTO 18 % (21-46); MONOCYTES ABSOLUTE AUTO 0.74 K/mm3 (0.16-1.47); MONOCYTES PERCENT AUTO 4 % (4-13); Mean Corpuscular HGB 31.7 pg (26.0-34.0); Mean Corpuscular Volume 96 fL (80-100); Mean Platelet Volume 9.3 fL (9.1-12.4); NEUTROPHILS ABSOLUTE AUTO 15.34 K/mm3 (1.96-9.15); NEUTROPHILS PERCENT AUTO 77 % (41-73); Platelet Count 363 K/mm3 (150-400); RDW Coefficient Variation 14.9 % (11.7-14.2); RDW Standard Deviation 52.2 fL (35.1-46.3); Red Blood Cell Count 4.45 M/mm3 (3.80-5.20); White Blood Cell Count 20.05 K/mm3 (4.00-11.30)
[2023-02-11 17:39] LABS: Source, Urine Clean Catch
[2023-02-11 17:45] LABS: Appearance, Urine Clear (Clear); Bilirubin, Urine Neg (Neg); Blood, Urine 1+ (Neg); Color, Urine Amber (P-Yellow); Glucose Qualitative, Urine Neg (Neg); Ketones, Urine 1+ (Neg); Leukocyte Esterase, Urine 1+ (Neg); Nitrite, Urine Neg (Neg); Protein, Urine 2+ (Neg); Specific Gravity, Urine 1.025 (1.003-1.022); Urobilinogen, Urine 1+ (Normal)
[2023-02-11 17:54] LABS: Bacteria Mod /hpf; Mucus Mod (0-Heavy); Red Blood Cells, Urine 0-2 /hpf (0-2); Squamous Epithelial Cells Few /hpf (Few)
[2023-02-11 18:08] LABS: Albumin, Blood 3.3 g/dL (3.4-5.0); Albumin/Globulin Ratio 0.6 (0.8-1.8); Bilirubin, Total 0.4 mg/dL (0.1-1.0); Bun/Creatinine Ratio 6.7 (12.0-20.0); Calcium, Blood 9.9 mg/dL (8.5-10.1); Creatinine, Blood 0.89 mg/dL (0.40-1.00); Globulin, Blood 5.1 g/dL (2.2-4.0); Potassium, Blood 3.8 mmol/L (3.5-5.5); Total Protein, Blood 8.4 g/dL (6.4-8.2)
[2023-02-11 23:00] VITALS: BP 131/86
[2023-02-12 00:10] LABS: International Normalized Ratio 1.02; Prothrombin Time Results 10.7 Sec (9.7-11.5)
[2023-02-12 03:30] VITALS: BP 112/62
--- NOTE | 2023-02-12 04:48 | NUR ---
SHIFT SUMMARY ED ADMIT- REPORT FROM MICHAEL ALCOCER- PT BROUGHT UP VIA AT 2254- PT ABLE TO TRANSER FROM THE WC TO BED- PT REPORTED THAT SHE CAN WALK WITH WALKER- DR. GREGORY IN ASSESSING THE PT- PT REPORTED LEFT AC IV PAINFUL WITH MOVEMENT- PT REFUSED TO START NEW IV AT FIRST- PT REQUESTED PAIN MEDICATION FOR CHRONIC BACK PAIN AND BILAT FEET PAIN- PT REFUSED TO ALLOW LEFT FOOT TO BE CLEANED- PT AMBULATED TO BR WITH FWW - PT REQUSTED ADDITIONAL PAIN MEDICATION- CALL TO DR. GREGORY TO CONTINUE HOME OXYCODONE DOSE- ORDERED AND GIVEN TO PT- PT CONTINUED TO C/O IV PAIN- NEW IV STARTED RIGHT FA- REMOVED LEFT AC IV- PT TOLERATED WELL-406 REPORT FROM KHARI RN THAT CALL FROM TELE MONITOR THAT PT HAD 6 BEAT RUN OF VTACH WHILE AT LUNCH- PT ASLEEP DURING EVENT AND NO S/S DISTRESS- BED LOW POSITION, CALL LIGHT WITHIN REACH
[2023-02-12 05:11] LABS: BASOPHILS ABSOLUTE AUTO 0.07 K/mm3 (0.00-0.23); BASOPHILS PERCENT AUTO 1 % (0-2); EOSINOPHILS ABSOLUTE AUTO 0.09 K/mm3 (0.00-0.68); EOSINOPHILS PERCENT AUTO 1 % (0-6); Hematocrit 35.2 % (33.0-51.0); Hemoglobin 11.3 g/dL (11.5-16.0); IMMATURE GRAN ABSOLUTE AUTO 0.16 K/mm3 (0.00-0.10); IMMATURE GRAN PERCENT AUTO 1 % (0-1); LYMPHOCYTES ABSOLUTE AUTO 3.86 K/mm3 (0.84-5.20); LYMPHOCYTES PERCENT AUTO 25 % (21-46); MONOCYTES ABSOLUTE AUTO 0.74 K/mm3 (0.16-1.47); MONOCYTES PERCENT AUTO 5 % (4-13); Mean Corpuscular HGB 31.3 pg (26.0-34.0); Mean Corpuscular HGB Conc 32.1 g/dL (31.5-36.5); Mean Corpuscular Volume 98 fL (80-100); Mean Platelet Volume 10.1 fL (9.1-12.4); NEUTROPHILS ABSOLUTE AUTO 10.26 K/mm3 (1.96-9.15); NEUTROPHILS PERCENT AUTO 68 % (41-73); Platelet Count 307 K/mm3 (150-400); RDW Coefficient Variation 14.9 % (11.7-14.2); RDW Standard Deviation 53.3 fL (35.1-46.3); Red Blood Cell Count 3.61 M/mm3 (3.80-5.20); White Blood Cell Count 15.18 K/mm3 (4.00-11.30)
[2023-02-12 06:15] LABS: Albumin, Blood 2.6 g/dL (3.4-5.0); Albumin/Globulin Ratio 0.7 (0.8-1.8); Bilirubin, Total 0.2 mg/dL (0.1-1.0); Bun/Creatinine Ratio 9.4 (12.0-20.0); Calcium, Blood 8.5 mg/dL (8.5-10.1); Creatinine, Blood 0.85 mg/dL (0.40-1.00); Globulin, Blood 3.7 g/dL (2.2-4.0); Potassium, Blood 3.9 mmol/L (3.5-5.5); Total Protein, Blood 6.3 g/dL (6.4-8.2)
[2023-02-12 07:23] VITALS: BP 101/61
[2023-02-12 09:35] VITALS: BP 94/60
[2023-02-12 10:43] VITALS: BP 99/64
[2023-02-12 16:33] VITALS: BP 97/63
--- NOTE | 2023-02-12 19:41 | NUR ---
SHIFT SUMMARY PATIENT WITH PAIN 5-8/10 THROUGH MOST OF SHIFT, MEDICATED PER EMAR. PATIENT REFUSED WOUND CARE BEGINNING OF SHIFT BUT WILLING THIS EVENING WITH FENTANYL PREMEDICATION. PICTURES TAKEN OF WOUNDS TO LEFT FOOT THAT ARE OPEN. AREA CLEANSED WITH NORMAL SALINE, PATTED DRY WITH GAUZE TOP OF FOOT WOUND AND BETWEEN TOES BY TRAFFIC II MANAGER, COVERED TOP WITH NONADHERENT DRESSING, ROLLED GAUZE BETWEEN TOES AND WRAPPED AROUND FOOT AND ANKLE, SECURED WITH TAPE AND NON SLIP SOCK APPLIED OVER IT ALL. PATIENT TOLERATED WITH MINIMAL PAIN. BED IN LOW POSITION. CALL LIGHT IN REACH. PATIENT CALLS APPROPRIATELY.
[2023-02-12 19:49] VITALS: BP 99/61
[2023-02-13 04:28] VITALS: BP 112/86
[2023-02-13 05:24] LABS: BASOPHILS ABSOLUTE AUTO 0.07 K/mm3 (0.00-0.23); BASOPHILS PERCENT AUTO 1 % (0-2); EOSINOPHILS ABSOLUTE AUTO 0.07 K/mm3 (0.00-0.68); EOSINOPHILS PERCENT AUTO 1 % (0-6); Hematocrit 32.2 % (33.0-51.0); Hemoglobin 10.4 g/dL (11.5-16.0); IMMATURE GRAN ABSOLUTE AUTO 0.11 K/mm3 (0.00-0.10); IMMATURE GRAN PERCENT AUTO 1 % (0-1); LYMPHOCYTES ABSOLUTE AUTO 2.51 K/mm3 (0.84-5.20); LYMPHOCYTES PERCENT AUTO 25 % (21-46); MONOCYTES ABSOLUTE AUTO 0.53 K/mm3 (0.16-1.47); MONOCYTES PERCENT AUTO 5 % (4-13); Mean Corpuscular HGB 31.5 pg (26.0-34.0); Mean Corpuscular HGB Conc 32.3 g/dL (31.5-36.5); Mean Corpuscular Volume 98 fL (80-100); Mean Platelet Volume 9.5 fL (9.1-12.4); NEUTROPHILS ABSOLUTE AUTO 6.62 K/mm3 (1.96-9.15); NEUTROPHILS PERCENT AUTO 67 % (41-73); Platelet Count 262 K/mm3 (150-400); RDW Standard Deviation 53.8 fL (35.1-46.3); White Blood Cell Count 9.91 K/mm3 (4.00-11.30)
--- NOTE | 2023-02-13 05:27 | NUR ---
SHIFT SUMMARY NOC A/O X 4. PLEASANT AND COOPERATIVE WITH CARE. NO ACUTE CHANGES TO REPORT. DAY RN CHANGED DRESSING ON L FOOT, DRESSING C/D/I. PT HAD C/O OF BLE/BACK PAIN AND MEDICATED PER EMAR. PT ON O2 3L/NC. ON TELE RUNNING SINUS TACHYCARDIA @ 114 BPM. PT HAS WOUND CONSULT ORDERED AND ASSESSMENT PENDING FROM [employer]. PT IS CURRENTLY RESTING WITH BED IN LOWEST POSITION, AND CALL LIGHT WITHIN REACH.
[2023-02-13 05:46] LABS: Albumin, Blood 2.5 g/dL (3.4-5.0); Albumin/Globulin Ratio 0.7 (0.8-1.8); Bilirubin, Total 0.3 mg/dL (0.1-1.0); Bun/Creatinine Ratio 9.5 (12.0-20.0); Calcium, Blood 8.9 mg/dL (8.5-10.1); Creatinine, Blood 0.74 mg/dL (0.40-1.00); Globulin, Blood 3.7 g/dL (2.2-4.0); Potassium, Blood 3.6 mmol/L (3.5-5.5); Total Protein, Blood 6.2 g/dL (6.4-8.2)
[2023-02-13 07:25] VITALS: BP 100/57
[2023-02-13 10:00] VITALS: BP 123/55
[2023-02-13 15:26] VITALS: BP 108/55
--- NOTE | 2023-02-13 19:03 | NUR ---
SHIFT SUMMARY PATIENT WITH PAIN TODAY, LOWEST IS 5/10 WITH FENTANYL, STAYS MOSTLY AROUND 6/10 WITH BACK AND BILAT LOWER EXT PAIN AND WITH OXYCODONE APPROX EVERY 5 HOURS. HEATING KPAD ALSO PROVIDED FOR LOW BACK PAIN. PATIENT USING COMMODE DUE TO PAIN IN FEET. PATIENT PLEASANT AND COOPERATIVE WITH CARE. BED IN LOW POSITION, CALL LIGHT IN REACH. PATIENT CALLS APPROPRIATELY.
[2023-02-13 19:40] VITALS: BP 109/56
[2023-02-14 04:00] VITALS: BP 103/47
[2023-02-14 05:46] LABS: BASOPHILS ABSOLUTE AUTO 0.07 K/mm3 (0.00-0.23); BASOPHILS PERCENT AUTO 1 % (0-2); EOSINOPHILS ABSOLUTE AUTO 0.07 K/mm3 (0.00-0.68); EOSINOPHILS PERCENT AUTO 1 % (0-6); Hematocrit 30.4 % (33.0-51.0); Hemoglobin 9.9 g/dL (11.5-16.0); IMMATURE GRAN ABSOLUTE AUTO 0.08 K/mm3 (0.00-0.10); IMMATURE GRAN PERCENT AUTO 1 % (0-1); LYMPHOCYTES ABSOLUTE AUTO 2.42 K/mm3 (0.84-5.20); LYMPHOCYTES PERCENT AUTO 31 % (21-46); MONOCYTES ABSOLUTE AUTO 0.51 K/mm3 (0.16-1.47); MONOCYTES PERCENT AUTO 7 % (4-13); Mean Corpuscular HGB 31.9 pg (26.0-34.0); Mean Corpuscular HGB Conc 32.6 g/dL (31.5-36.5); Mean Corpuscular Volume 98 fL (80-100); Mean Platelet Volume 10.1 fL (9.1-12.4); NEUTROPHILS ABSOLUTE AUTO 4.58 K/mm3 (1.96-9.15); NEUTROPHILS PERCENT AUTO 59 % (41-73); Platelet Count 261 K/mm3 (150-400); RDW Coefficient Variation 15.3 % (11.7-14.2); RDW Standard Deviation 54.9 fL (35.1-46.3); White Blood Cell Count 7.73 K/mm3 (4.00-11.30)
--- NOTE | 2023-02-14 05:52 | NUR ---
SHIFT SUMMARY NOC A/O X 4. PLEASANT AND COOPERATIVE WITH CARE. NO ACUTE CHANGES TO REPORT. PT PAIN MANAGED PER EMAR. PT WAS EDUCATED ON NEED TO TRANSITION TO PO PAIN MEDICATION SO THAT DISCHARGE CAN HAPPEN MORE QUICKLY. PT ON TELE RUNNING SINUS RHYTHM IN 90'S. PT L FOOT OPEN TO AIR WITH OINTMENT APPLIED. PT POSSIBLE DISCHARGE HOME TODAY. PT IS CURRENTLY RESTING WITH BED IN LOWEST POSITION, AND CALL LIGHT WITHIN REACH.
[2023-02-14 06:19] LABS: Calcium, Blood 8.9 mg/dL (8.5-10.1); Creatinine, Blood 0.77 mg/dL (0.40-1.00); Potassium, Blood 4.1 mmol/L (3.5-5.5)
[2023-02-14 07:33] VITALS: BP 101/61
--- NOTE | 2023-02-14 17:09 | NUR ---
SHIFT SUMMARY Pt remains A&O x3 this shift. Back and BLE pain managed with po meds and one time dose of IV Fentanyl this am. Resp even nonlabored on baseline 2L NC. NO acute changes this shift. Pain and safety maintained. Will continue to monitor.
[2023-02-14 17:36] VITALS: BP 105/64
[2023-02-14 19:37] VITALS: BP 104/56
[2023-02-15 04:34] VITALS: BP 105/56
--- NOTE | 2023-02-15 04:42 | NUR ---
SHIFT SUMMARY PATIENT A/Ox4, PLEASANT, TALKATIVE. C/O BILATERAL FOOT PAIN, MEDICATED PER eMAR. MOSTLY INDEPENDENT IN ROOM. NO ACUTE CHANGES NOTED OVERNIGHT. BED LOCKED AND IN LOWEST POSITION, CALL LIGHT WITHIN REACH.
[2023-02-15 04:49] LABS: BASOPHILS ABSOLUTE AUTO 0.06 K/mm3 (0.00-0.23); BASOPHILS PERCENT AUTO 1 % (0-2); EOSINOPHILS ABSOLUTE AUTO 0.09 K/mm3 (0.00-0.68); EOSINOPHILS PERCENT AUTO 1 % (0-6); Hematocrit 30.3 % (33.0-51.0); Hemoglobin 9.7 g/dL (11.5-16.0); Mean Corpuscular HGB 31.3 pg (26.0-34.0); Mean Corpuscular Volume 98 fL (80-100); Mean Platelet Volume 9.6 fL (9.1-12.4); Platelet Count 283 K/mm3 (150-400); RDW Coefficient Variation 15.4 % (11.7-14.2); RDW Standard Deviation 54.9 fL (35.1-46.3); White Blood Cell Count 7.95 K/mm3 (4.00-11.30)
[2023-02-15 04:59] LABS: IMMATURE GRAN ABSOLUTE AUTO 0.05 K/mm3 (0.00-0.10); IMMATURE GRAN PERCENT AUTO 1 % (0-1); LYMPHOCYTES ABSOLUTE AUTO 2.57 K/mm3 (0.84-5.20); LYMPHOCYTES PERCENT AUTO 32 % (21-46); MONOCYTES ABSOLUTE AUTO 0.49 K/mm3 (0.16-1.47); MONOCYTES PERCENT AUTO 6 % (4-13); NEUTROPHILS ABSOLUTE AUTO 4.69 K/mm3 (1.96-9.15); NEUTROPHILS PERCENT AUTO 59 % (41-73)
[2023-02-15 05:18] LABS: Bun/Creatinine Ratio 12.7 (12.0-20.0); Calcium, Blood 9.1 mg/dL (8.5-10.1); Creatinine, Blood 0.79 mg/dL (0.40-1.00); Potassium, Blood 4.3 mmol/L (3.5-5.5)
[2023-02-15 05:39] LABS: BAND PERCENT MAN 1 % (0-8); BASOPHILS PERCENT MAN 0 % (0-2); EOSINOPHILS PERCENT MAN 0 % (0-6); LYMPHOCYTES ABSOLUTE MAN 2.22 K/mm3 (0.84-5.20); LYMPHOCYTES PERCENT MAN 28 % (21-46); METAMYELOCYTE ABSOLUTE MAN 0.07 K/mm3 (0.00-0.00); METAMYELOCYTE PERCENT MAN 1 % (0-0); MONOCYTES ABSOLUTE MAN 0.31 K/mm3 (0.16-1.47); MONOCYTES PERCENT MAN 4 % (4-13); NEUTROPHILS ABSOLUTE MAN 5.32 K/mm3 (1.96-9.15); SEG NEUTROPHILS PERCENT MAN 66 % (41-73); TOTAL CELLS COUNTED 100
[2023-02-15 07:24] VITALS: BP 101/51
[2023-02-15] MEDS ORDERED: Clindamycin HC300 MG PO (12:30)
--- NOTE | 2023-02-15 14:44 | NUR ---
PT DISCHARGED HOME. DISCHARGE INSTRUCTIONS DISCUSSED WITH PT. NO QUESTIONS AT THIS TIME. ALERT AND ORIENTED X4.
== END 2023-02-15 14:44 | disposition home or self-care (01) | DRG 872 ==
LOC: ER 16:37 → MEDS 16:38 → ENPENDDIS 02-15 10:54 → MEDS 02-15 14:44
PROVIDERS: Internal Medicine; Student in an Organized Health Care Education/Training Program; ADMIT Internal Medicine
DX: A41.9 Sepsis, unspecified organism (principal); N39.0 Urinary tract infection, site not specified; L03.116 Cellulitis of left lower limb; F17.213 Nicotine dependence, cigarettes, with withdrawal; N12 Tubulo-interstitial nephritis, not specified as acute or chronic; F11.20 Opioid dependence, uncomplicated; M54.50 Low back pain, unspecified; G89.29 Other chronic pain; J44.9 Chronic obstructive pulmonary disease, unspecified; E11.22 Type 2 diabetes mellitus with diabetic chronic kidney disease; I77.89 Other specified disorders of arteries and arterioles; F32.9 Major depressive disorder, single episode, unspecified; I12.9 Hypertensive chronic kidney disease with stage 1 through stage 4 chronic kidney disease, or unspecified chronic kidney disease; M19.90 Unspecified osteoarthritis, unspecified site; M79.7 Fibromyalgia; D63.1 Anemia in chronic kidney disease; I25.10 Atherosclerotic heart disease of native coronary artery without angina pectoris; L40.9 Psoriasis, unspecified; E86.0 Dehydration; Z88.0 Allergy status to penicillin; Z88.2 Allergy status to sulfonamides; Z88.5 Allergy status to narcotic agent; Z88.8 Allergy status to other drugs, medicaments and biological substances; Z91.018 Allergy to other foods; Z79.02 Long term (current) use of antithrombotics/antiplatelets; Z79.899 Other long term (current) drug therapy; Z79.51 Long term (current) use of inhaled steroids; Z98.890 Other specified postprocedural states; Z95.1 Presence of aortocoronary bypass graft; Z79.84 Long term (current) use of oral hypoglycemic drugs; Z90.710 Acquired absence of both cervix and uterus; Z71.6 Tobacco abuse counseling; Z86.14 Personal history of Methicillin resistant Staphylococcus aureus infection
CPT/HCPCS: 36415; 73630; 74177; 80048; 80053; 81001; 82947; 83605; 83880; 85025; 85610; 87040; 87086; 93005; 93010; 94640; 94664; 94760; 96361; 96365-59; 96366; 96368; 97116; 97161; 97165; 97530; 99285-25; A9270; J0696; J1650; J3010; J3370; J7030; J7050; Q9967

== ENCOUNTER 2023-03-01 17:41 | Emergency (ER) | payer OTHER ==
[~2023-03-01] VITALS: Ht 170.2 cm; Wt 68.0 kg
[~2023-03-01 17:41] MED LIST changes: +Clindamycin HC300 MG PO
[2023-03-01 17:47] VITALS: BP 138/75
[2023-03-01] MEDS ORDERED: Cleocin HCl150 MG PO (17:53)
== END 2023-03-01 17:53 | disposition home or self-care (01) ==
LOC: ER 17:41
DX: S91.302A Unspecified open wound, left foot, initial encounter (principal); S91.301A Unspecified open wound, right foot, initial encounter; L03.116 Cellulitis of left lower limb; L03.115 Cellulitis of right lower limb; J42 Unspecified chronic bronchitis; M19.90 Unspecified osteoarthritis, unspecified site; M79.7 Fibromyalgia; X58.XXXA Exposure to other specified factors, initial encounter; Z88.0 Allergy status to penicillin; Z88.1 Allergy status to other antibiotic agents; Z88.2 Allergy status to sulfonamides; Z88.5 Allergy status to narcotic agent; Z88.8 Allergy status to other drugs, medicaments and biological substances; Z91.018 Allergy to other foods; Z79.02 Long term (current) use of antithrombotics/antiplatelets; Z79.51 Long term (current) use of inhaled steroids; Z79.899 Other long term (current) drug therapy
CPT/HCPCS: 99283

== ENCOUNTER → 2023-04-15 | Outpatient (CLI) | payer OTHER ==
[~2023-04-15] MED LIST changes: +Cleocin HCl150 MG PO
[2023-04-15 16:36] LABS: BASOPHILS ABSOLUTE AUTO 0.05 K/mm3 (0.00-0.23); BASOPHILS PERCENT AUTO 0 % (0-2); EOSINOPHILS ABSOLUTE AUTO 0.02 K/mm3 (0.00-0.68); EOSINOPHILS PERCENT AUTO 0 % (0-6); Hematocrit 41.3 % (33.0-51.0); Hemoglobin 13.2 g/dL (11.5-16.0); IMMATURE GRAN ABSOLUTE AUTO 0.23 K/mm3 (0.00-0.10); IMMATURE GRAN PERCENT AUTO 1 % (0-1); LYMPHOCYTES ABSOLUTE AUTO 3.12 K/mm3 (0.84-5.20); LYMPHOCYTES PERCENT AUTO 16 % (21-46); MONOCYTES ABSOLUTE AUTO 0.57 K/mm3 (0.16-1.47); MONOCYTES PERCENT AUTO 3 % (4-13); Mean Corpuscular HGB 31.1 pg (26.0-34.0); Mean Corpuscular Volume 97 fL (80-100); Mean Platelet Volume 10.6 fL (9.1-12.4); NEUTROPHILS PERCENT AUTO 79 % (41-73); Platelet Count 358 K/mm3 (150-400); RDW Coefficient Variation 13.8 % (11.7-14.2); Red Blood Cell Count 4.24 M/mm3 (3.80-5.20); White Blood Cell Count 18.99 K/mm3 (4.00-11.30)
[2023-04-16 19:11] LABS: A/G RATIO 1.1 (1.2-2.2); ALKALINE PHOSPHATASE, S 96 IU/L (44-121); ALT (SGPT) 14 IU/L (0-32); AST (SGOT) 17 IU/L (0-40); BILIRUBIN, TOTAL <0.2 mg/dL (0.0-1.2); BUN 11 mg/dL (8-27); BUN/CREATININE RATIO 16 (12-28); CALCIUM, SERUM 10.3 mg/dL (8.7-10.3); CARBON DIOXIDE, TOTAL 21 mmol/L (20-29); CHLORIDE, SERUM 98 mmol/L (96-106); CHOLESTEROL, TOTAL 169 mg/dL (100-199); CREATININE, SERUM 0.69 mg/dL (0.57-1.00); GLOBULIN, TOTAL 3.5 g/dL (1.5-4.5); GLUCOSE, SERUM 107 mg/dL (70-99); HDL CHOLESTEROL 84 mg/dL (>39); LDL CHOLESTEROL CALC 74 mg/dL (0-99); POTASSIUM, SERUM 4.9 mmol/L (3.5-5.2); PROTEIN, TOTAL, SERUM 7.5 g/dL (6.0-8.5); SODIUM, SERUM 136 mmol/L (134-144); TRIGLYCERIDES 51 mg/dL (0-149); VLDL CHOLESTEROL CAL 11 mg/dL (5-40)
== END | disposition home or self-care (01) ==
LOC: LAB 12:42 → LAB SHORT 12:42
PROVIDERS: Physician Assistant Medical
DX: E11.22 Type 2 diabetes mellitus with diabetic chronic kidney disease (principal)
CPT/HCPCS: 80053; 80061; 83036; 85025

== ENCOUNTER 2023-04-19 03:58 | Day surgery (SDC) | payer OTHER | END 2023-04-20 00:05 | disposition home or self-care (01) | LOC: WOUND 03:58 | DX: L97.522 Non-pressure chronic ulcer of other part of left foot with fat layer exposed (principal); L97.312 Non-pressure chronic ulcer of right ankle with fat layer exposed; L97.322 Non-pressure chronic ulcer of left ankle with fat layer exposed; I73.9 Peripheral vascular disease, unspecified; I87.2 Venous insufficiency (chronic) (peripheral); J44.9 Chronic obstructive pulmonary disease, unspecified; R00.0 Tachycardia, unspecified; L40.9 Psoriasis, unspecified; F17.210 Nicotine dependence, cigarettes, uncomplicated; Z88.5 Allergy status to narcotic agent; Z88.0 Allergy status to penicillin; Z88.2 Allergy status to sulfonamides; Z88.8 Allergy status to other drugs, medicaments and biological substances | CPT/HCPCS: 99406; A9270; G0463 ==

== ENCOUNTER 2023-04-26 01:23 | Day surgery (SDC) | payer OTHER | END 2023-04-26 22:55 | disposition home or self-care (01) | LOC: WOUND 01:23 | DX: S91.302D Unspecified open wound, left foot, subsequent encounter (principal); S91.109D Unspecified open wound of unspecified toe(s) without damage to nail, subsequent encounter; S91.001D Unspecified open wound, right ankle, subsequent encounter; S91.002D Unspecified open wound, left ankle, subsequent encounter; L97.312 Non-pressure chronic ulcer of right ankle with fat layer exposed; L97.522 Non-pressure chronic ulcer of other part of left foot with fat layer exposed; L97.322 Non-pressure chronic ulcer of left ankle with fat layer exposed; I87.2 Venous insufficiency (chronic) (peripheral); I73.9 Peripheral vascular disease, unspecified; J44.9 Chronic obstructive pulmonary disease, unspecified; L40.9 Psoriasis, unspecified; R00.0 Tachycardia, unspecified; Z72.0 Tobacco use; X58.XXXD Exposure to other specified factors, subsequent encounter | CPT/HCPCS: G0463 ==

== ENCOUNTER 2023-05-03 00:47 | Day surgery (SDC) | payer OTHER ==
[2023-05-03] MEDS ORDERED: Lidocaine HCl 4% Cream 5 GM ONE (08:53)
== END 2023-05-03 23:13 | disposition home or self-care (01) ==
LOC: WOUND 00:47
DX: L97.312 Non-pressure chronic ulcer of right ankle with fat layer exposed (principal); L97.522 Non-pressure chronic ulcer of other part of left foot with fat layer exposed; L97.322 Non-pressure chronic ulcer of left ankle with fat layer exposed; I87.2 Venous insufficiency (chronic) (peripheral); I73.9 Peripheral vascular disease, unspecified; J44.9 Chronic obstructive pulmonary disease, unspecified; L40.9 Psoriasis, unspecified; R00.0 Tachycardia, unspecified; Z72.0 Tobacco use
CPT/HCPCS: 99406; A9270; G0463

== ENCOUNTER 2023-05-10 01:40 | Day surgery (SDC) | payer OTHER | END 2023-05-10 23:09 | disposition home or self-care (01) | LOC: WOUND 01:40 | DX: L97.312 Non-pressure chronic ulcer of right ankle with fat layer exposed (principal); L97.522 Non-pressure chronic ulcer of other part of left foot with fat layer exposed; L97.322 Non-pressure chronic ulcer of left ankle with fat layer exposed; I87.2 Venous insufficiency (chronic) (peripheral); I73.9 Peripheral vascular disease, unspecified; J44.9 Chronic obstructive pulmonary disease, unspecified; L40.9 Psoriasis, unspecified; R00.0 Tachycardia, unspecified; Z72.0 Tobacco use | CPT/HCPCS: G0463 ==

== ENCOUNTER 2023-08-30 02:46 | Day surgery (SDC) | payer OTHER | END 2023-08-31 00:49 | disposition home or self-care (01) | LOC: WOUND 02:46 | DX: L97.312 Non-pressure chronic ulcer of right ankle with fat layer exposed (principal); L97.522 Non-pressure chronic ulcer of other part of left foot with fat layer exposed; L97.322 Non-pressure chronic ulcer of left ankle with fat layer exposed; I87.2 Venous insufficiency (chronic) (peripheral); I73.9 Peripheral vascular disease, unspecified; J44.9 Chronic obstructive pulmonary disease, unspecified; L40.9 Psoriasis, unspecified; Z72.0 Tobacco use | CPT/HCPCS: G0463 ==

== ENCOUNTER 2024-01-16 14:32 | Inpatient (IN) | payer OTHER ==
[~2024-01-16] VITALS: Ht 170.2 cm; Wt 66.8 kg
[2024-01-16] VITALS (22 sets, daily range): BP systolic 86–116; BP diastolic 60–87
[2024-01-16] MEDS ORDERED: Morphine Sulfate 4 MG/1 ML Injection IV ONE (15:00)
[2024-01-16 15:16] LABS: Mean Corpuscular HGB 24.2 pg (26.0-34.0); Mean Corpuscular HGB Conc 28.1 g/dL (31.5-36.5); Mean Corpuscular Volume 86 fL (80-100); Mean Platelet Volume 11.5 fL (9.1-12.4); NRBC ABSOLUTE 0.33 K/mm3 (0.00-0.02); NRBC Auto 1.8 /100 WBC (0.0-0.2); Platelet Count 536 K/mm3 (150-400); RDW Coefficient Variation 18.7 % (11.7-14.2); RDW Standard Deviation 58.1 fL (35.1-46.3); Red Blood Cell Count 1.86 M/mm3 (3.80-5.20); White Blood Cell Count 18.31 K/mm3 (4.00-11.30)
[2024-01-16 15:22] LABS: Hemoglobin 4.5 g/dL (11.5-16.0)
[2024-01-16 15:27] LABS: Albumin, Blood 2.7 g/dL (3.4-5.0); Albumin/Globulin Ratio 0.6 (0.8-1.8); Bilirubin, Total 0.3 mg/dL (0.1-1.0); Bun/Creatinine Ratio 23.1 (12.0-20.0); Calcium, Blood 9.6 mg/dL (8.5-10.1); Creatinine, Blood 0.82 mg/dL (0.40-1.00); Globulin, Blood 4.2 g/dL (2.2-4.0); Magnesium, Blood 2.6 mg/dL (1.6-2.4); Total Protein, Blood 6.9 g/dL (6.4-8.2)
[2024-01-16 15:36] LABS: BASOPHILS PERCENT MAN 0 % (0-2); EOSINOPHILS PERCENT MAN 0 % (0-6); LYMPHOCYTES % ATYPICAL MANUAL 2 % (0-0); LYMPHOCYTES ABSOLUTE MAN 1.83 K/mm3 (0.84-5.20); LYMPHOCYTES PERCENT MAN 8 % (21-46); MONOCYTES ABSOLUTE MAN 0.91 K/mm3 (0.16-1.47); MONOCYTES PERCENT MAN 5 % (4-13); NEUTROPHILS ABSOLUTE MAN 15.56 K/mm3 (1.96-9.15); SEG NEUTROPHILS PERCENT MAN 85 % (41-73); TOTAL CELLS COUNTED 100
[2024-01-16 16:23] LABS: Influenza A, PCR NEGATIVE (NEGATIVE); Influenza B, PCR NEGATIVE (NEGATIVE); Resp Syncytial Virus, PCR NEGATIVE (NEGATIVE); SARS-Cov-2 (COVID-19) PCR, MMC NEGATIVE (NEGATIVE)
[2024-01-16] MEDS ORDERED: Albuterol 2.5 MG/3 ML VIAL INH SCH (16:30)
[2024-01-16] MEDS ORDERED: Methocarbamol500 MG PO (17:37)
[2024-01-16] MEDS ORDERED: FLU VACC TS2024-25(6MOS UP)/PF 45 MCG/0.5 ML SYRINGE IM SCH (18:00)
[2024-01-16] MEDS ORDERED: Furosemide 10 MG/ML 4ML Vial IV SCH (18:00)
[2024-01-16] MEDS ORDERED: Ondansetron HCl 2 MG / ML 2ML Vial IV PRN (18:00)
[2024-01-16] MEDS ORDERED: HYDROmorphone HCl/Pf 1MG SYR IV PRN (18:25)
[2024-01-16] MEDS ORDERED: NS 1,000 ML IV SCH ×2 (18:35→18:50)
[2024-01-16] MEDS ORDERED: Mometasone/Formoterol MDI 200/5 mcg 13 GM INH SCH (18:45)
[2024-01-16] MEDS ORDERED: LevoFLOXacin 750 MG/D5W 150ML 150 ML IV SCH (19:00)
--- NOTE | 2024-01-16 19:12 | NUR ---
ASSUMED CARE. PT ARRIVED AT 1846, SHE WAS ALERT AND ORIENTED. ABLE TO ANSWER QUESTIONS. SHE IS TRIPODING AND TACHYPNIC. PT HAS BLOOD INFUSING, NC CANNULA ON 3LPM. PT LOWER EXTREMTIES ARE MOTTLED AND COLD. GAVE REPORT TO [facility] JEFFREY AND MARILY.
[2024-01-16] MEDS ORDERED: Albuterol 2.5 MG/3 ML VIAL INH PRN (20:25)
[2024-01-16] MEDS ORDERED: Docusate Sodium 100 MG Cap PO SCH (21:00)
[2024-01-16] MEDS ORDERED: Sennosides 8.6 MG Tab PO SCH (21:00)
[2024-01-16] MEDS ORDERED: Insulin Human Lispro 100 Units/ML 3ML Syringe SC SCH (21:00)
--- NOTE | 2024-01-16 21:47 | NUR ---
ASSUME CARE: BEDSIDE REPORT RECIEVED MY DAYSHIFT RN. PT A/Ox4 AND COOPERATIVE W/CARE, ANXIOUS AT TIMES. PT IN TRIPOD POSITION AT START OF SHIFT, REQUESTING O2 TO BE TURN UP, SPO2>100s ON 5L NC, PT TACHYPNEIC W/INCREASED ANXIETY. SBP 100-110s, MAP>65, PT DENIES CHEST PAIN OR PRESSURE. RATE 130s-140s. MONITOR SHOWS SINUS TACH. 1ST OF 2 PRBCS INFUSING IN RT AC. PT COMPLAINTS OF 13/10 PAIN IN LEGS AND BACK, MEDICATED PER EMAR W/SOME RELIEF. CALL LIGHT IN REACH AND BED IN LOWEST POSITON. WILL UPDATE NEEDED.
[2024-01-16] MEDS ORDERED: Ipratropium/Albuterol SulF 2.5-0.5MG/3 ML Amp INH SCH (22:00)
[2024-01-17] VITALS (55 sets, daily range): BP systolic 109–136; BP diastolic 64–93
[2024-01-17 02:15] LABS: Hematocrit 21.3 % (33.0-51.0); Hemoglobin 6.7 g/dL (11.5-16.0)
[2024-01-17] MEDS ORDERED: NS 250 ML IV PRN (03:35)
[2024-01-17 04:14] LABS: BASOPHILS ABSOLUTE AUTO 0.02 K/mm3 (0.00-0.23); BASOPHILS PERCENT AUTO 0 % (0-2); EOSINOPHILS ABSOLUTE AUTO 0.01 K/mm3 (0.00-0.68); EOSINOPHILS PERCENT AUTO 0 % (0-6); Hematocrit 22.4 % (33.0-51.0); IMMATURE GRAN ABSOLUTE AUTO 0.11 K/mm3 (0.00-0.10); IMMATURE GRAN PERCENT AUTO 1 % (0-1); LYMPHOCYTES ABSOLUTE AUTO 2.95 K/mm3 (0.84-5.20); LYMPHOCYTES PERCENT AUTO 22 % (21-46); MONOCYTES ABSOLUTE AUTO 1.32 K/mm3 (0.16-1.47); MONOCYTES PERCENT AUTO 10 % (4-13); Mean Corpuscular HGB 26.4 pg (26.0-34.0); Mean Corpuscular HGB Conc 31.3 g/dL (31.5-36.5); Mean Corpuscular Volume 85 fL (80-100); Mean Platelet Volume 11.6 fL (9.1-12.4); NEUTROPHILS ABSOLUTE AUTO 9.13 K/mm3 (1.96-9.15); NEUTROPHILS PERCENT AUTO 68 % (41-73); NRBC ABSOLUTE 0.18 K/mm3 (0.00-0.02); NRBC Auto 1.3 /100 WBC (0.0-0.2); Platelet Count 385 K/mm3 (150-400); RDW Coefficient Variation 16.2 % (11.7-14.2); RDW Standard Deviation 50.1 fL (35.1-46.3); Red Blood Cell Count 2.65 M/mm3 (3.80-5.20); White Blood Cell Count 13.54 K/mm3 (4.00-11.30)
[2024-01-17 04:25] LABS: Albumin, Blood 2.8 g/dL (3.4-5.0); Albumin/Globulin Ratio 0.7 (0.8-1.8); Bilirubin, Total 0.7 mg/dL (0.1-1.0); Bun/Creatinine Ratio 29.3 (12.0-20.0); Calcium, Blood 9.1 mg/dL (8.5-10.1); Creatinine, Blood 0.96 mg/dL (0.40-1.00); Globulin, Blood 3.8 g/dL (2.2-4.0); Magnesium, Blood 2.5 mg/dL (1.6-2.4); Potassium, Blood 4.3 mmol/L (3.5-5.5); Total Protein, Blood 6.6 g/dL (6.4-8.2)
--- NOTE | 2024-01-17 05:44 | NUR ---
SHIFT SUMMARY: PT A/Ox4 THROUGHOUT THE NIGHT, PLEASANT AND COOPERATIVE WITH CARE, USES CALL LIGHT TO MAKE NEEDS KNOWN. SBP 120s, MAP>65, MONITOR SHOWS SINUS TACH RATE 120s-130s. SPO2>100% ON 5L NC, UNABLE TO TITRATE O2 DOWN YET DUE TO PT DISCOMFORT, STATING SHE FEELS LIKE SHE CANNOT BREATHE WITHOUT THE INCREASED O2. PT IN TRIPOD POSITION FOR MOST OF THE NIGHT, BUT ABLE TO RELAX A LITTLE THIS MORNING. PT COMPLAINS OF EXTREME PAIN IN HER BACK AND LEGS, MEDICATED PER EMAR, REPOSITIONED AND OFFERED HEATING PAD. BLADDER SCANNED PT AT 2300 WITH >900 ML IN BLADDER, STRAIGHT CATH x1 W/ 1100 CLEAR YELLOW URINE OUT. PEDAL DOPPLER PULSES NOT HEARD WITH ADMISSION ASSESSMENT, DOPPLER PULSES HEARD W/ 0400 ASSESSMENT. CALLED REGARDING CODE STATUS, PT STATES SHE DOES NOT WANT COMPRESSIONS, BUT WANTS EVERYTHING ELSE. CODE STATUS UPDATED. 3 UNITS OF PRBCs INFUSED LAST NIGHT, WITH NO ISSUES. CALL LIGHT IN REACH, AND BED IN LOWEST POSITION. WILL REPORT TO ONCOMING RN.
[2024-01-17] MEDS ORDERED: Pantoprazole Sodium 40 MG Injection IV SCH (06:00)
[2024-01-17 08:39] LABS: Base Excess Venous 2.6 mmol/L; Bicarbonate Venous 26.7 mmol/L (24.0-30.0); PCO2 Venous 35.9 mmHg (38-42); pH Blood Venous 7.47 (7.34-7.37)
[2024-01-17] MEDS ORDERED: Enoxaparin 40 MG/0.4 ML SYR SC SCH ×2 (09:00→22:00)
[2024-01-17] MEDS ORDERED: MethylPREDNISolone Sod Succ 40 MG VIAL IV SCH (10:00)
[2024-01-17 10:19] LABS: Hematocrit 26.7 % (33.0-51.0); Hemoglobin 8.6 g/dL (11.5-16.0); Mean Corpuscular HGB 26.9 pg (26.0-34.0); Mean Corpuscular HGB Conc 32.2 g/dL (31.5-36.5); Mean Corpuscular Volume 83 fL (80-100); Mean Platelet Volume 11.3 fL (9.1-12.4); Platelet Count 393 K/mm3 (150-400); RDW Coefficient Variation 15.7 % (11.7-14.2)
[2024-01-17 10:25] LABS: NRBC ABSOLUTE 0.18 K/mm3 (0.00-0.02); NRBC Auto 1.4 /100 WBC (0.0-0.2); White Blood Cell Count 13.23 K/mm3 (4.00-11.30)
[2024-01-17 10:57] LABS: BASOPHILS PERCENT MAN 0 % (0-2); EOSINOPHILS PERCENT MAN 0 % (0-6); LYMPHOCYTES ABSOLUTE MAN 2.38 K/mm3 (0.84-5.20); LYMPHOCYTES PERCENT MAN 18 % (21-46); MONOCYTES ABSOLUTE MAN 0.79 K/mm3 (0.16-1.47); MONOCYTES PERCENT MAN 6 % (4-13); NEUTROPHILS ABSOLUTE MAN 10.05 K/mm3 (1.96-9.15); SEG NEUTROPHILS PERCENT MAN 76 % (41-73); TOTAL CELLS COUNTED 100
[2024-01-17 16:18] LABS: BASOPHILS ABSOLUTE AUTO 0.01 K/mm3 (0.00-0.23); BASOPHILS PERCENT AUTO 0 % (0-2); EOSINOPHILS ABSOLUTE AUTO 0.01 K/mm3 (0.00-0.68); EOSINOPHILS PERCENT AUTO 0 % (0-6); Hematocrit 25.5 % (33.0-51.0); Hemoglobin 8.3 g/dL (11.5-16.0); IMMATURE GRAN ABSOLUTE AUTO 0.15 K/mm3 (0.00-0.10); IMMATURE GRAN PERCENT AUTO 2 % (0-1); LYMPHOCYTES ABSOLUTE AUTO 0.79 K/mm3 (0.84-5.20); LYMPHOCYTES PERCENT AUTO 8 % (21-46); MONOCYTES ABSOLUTE AUTO 0.31 K/mm3 (0.16-1.47); MONOCYTES PERCENT AUTO 3 % (4-13); Mean Corpuscular HGB 26.9 pg (26.0-34.0); Mean Corpuscular HGB Conc 32.5 g/dL (31.5-36.5); Mean Corpuscular Volume 83 fL (80-100); Mean Platelet Volume 11.3 fL (9.1-12.4); NEUTROPHILS ABSOLUTE AUTO 8.77 K/mm3 (1.96-9.15); NEUTROPHILS PERCENT AUTO 87 % (41-73); NRBC ABSOLUTE 0.11 K/mm3 (0.00-0.02); NRBC Auto 1.1 /100 WBC (0.0-0.2); Platelet Count 341 K/mm3 (150-400); RDW Coefficient Variation 15.7 % (11.7-14.2); RDW Standard Deviation 46.8 fL (35.1-46.3); Red Blood Cell Count 3.08 M/mm3 (3.80-5.20); White Blood Cell Count 10.04 K/mm3 (4.00-11.30)
--- NOTE | 2024-01-17 16:59 | NUR ---
SUMMARY PT A/O X4. IMPROVED SOB, NO TRIPODDING. 3-5L NC. OOB TO BSC SEVERAL TIMES TODAY. REPOSITIONING SELF IN BED. H&H IMPROVED AND STABLE. DR. JEFFERS SAW PT TONIGHT AND DOES NOT THINK PT NEEDS EGD, OK FOR DIET NOW. CHANGED TO PCU STATUS. USING CALL LIGHT APPROPRIATELY.
[2024-01-17] MEDS ORDERED: OxyCODONE HCL 5 MG TAB PO PRN (18:50)
[2024-01-17] MEDS ORDERED: Metoprolol Succinate 50 MG TABCR PO SCH (19:00)
--- NOTE | 2024-01-17 19:12 | NUR ---
RN SUMMARY [id number] BEDSIDE REPORT GIVEN TO CARLYN POLO. PT IS A/O, ST UP TO 140'S, BP WNL, SVT RUNS UP TO 180, SELF LIMITING. ON 3L NC, O2 SAT 99%, PT WEARS 3L O2 VIA NC AT BASELINE. MILD NAUSEA, TREATED WITH ZOFRAN X1, BS NORMOACTIVE. VOIDS USING BSC, 450 ML CLEAR YELLOW URINE AFTER 40 MG LASIX IV. SKIN REDDENED AND FRAGILE TO BLE, PICTURES TAKEN. COCCYX BLANCHABLE REDNESS. MEPILEX PLACED TO COCCYX, PICTURES TAKEN. PIV TO RIGHT AND LEFT AC. BOTH FLUSH WELL AND WITHDRAW BLOOD. LEVOFLOXACIN IV ATB INFUSING TO LEFT AC. DENTURES BRUSHED, LINNEN CHANGED, NNIA CARE COMPLETED AFTER VOIDING. NO FAMILY AT BEDSIDE. PT COMMUNICATING WITH SO VIA PHONE. 1 UNIT INSULIN GIVEN FOR FS 153.
[2024-01-17] MEDS ORDERED: Pregabalin 75 MG Cap PO SCH (21:00)
[2024-01-17] MEDS ORDERED: Amitriptyline HCl 50 MG Tab PO SCH (21:00)
[2024-01-17] MEDS ORDERED: HYDROmorphone HCl/Pf 1MG SYR IV PRN (21:10)
[2024-01-17 21:54] LABS: BASOPHILS ABSOLUTE AUTO 0.01 K/mm3 (0.00-0.23); BASOPHILS PERCENT AUTO 0 % (0-2); EOSINOPHILS ABSOLUTE AUTO 0.01 K/mm3 (0.00-0.68); EOSINOPHILS PERCENT AUTO 0 % (0-6); Hematocrit 25.3 % (33.0-51.0); Hemoglobin 8.4 g/dL (11.5-16.0); IMMATURE GRAN ABSOLUTE AUTO 0.14 K/mm3 (0.00-0.10); IMMATURE GRAN PERCENT AUTO 2 % (0-1); LYMPHOCYTES ABSOLUTE AUTO 1.05 K/mm3 (0.84-5.20); LYMPHOCYTES PERCENT AUTO 13 % (21-46); MONOCYTES ABSOLUTE AUTO 0.56 K/mm3 (0.16-1.47); MONOCYTES PERCENT AUTO 7 % (4-13); Mean Corpuscular HGB 27.1 pg (26.0-34.0); Mean Corpuscular HGB Conc 33.2 g/dL (31.5-36.5); Mean Corpuscular Volume 82 fL (80-100); NEUTROPHILS ABSOLUTE AUTO 6.18 K/mm3 (1.96-9.15); NEUTROPHILS PERCENT AUTO 78 % (41-73); NRBC ABSOLUTE 0.13 K/mm3 (0.00-0.02); NRBC Auto 1.6 /100 WBC (0.0-0.2); Platelet Count 339 K/mm3 (150-400); RDW Coefficient Variation 15.9 % (11.7-14.2); RDW Standard Deviation 47.8 fL (35.1-46.3); White Blood Cell Count 7.95 K/mm3 (4.00-11.30)
[2024-01-18] VITALS (15 sets, daily range): BP systolic 96–132; BP diastolic 59–82
--- NOTE | 2024-01-18 06:23 | NUR ---
SHIFT SUMMARY NO ACUTE EVENTS T/O NIGHT. PT A/O X 4. COOPERATIVE WITH CARE. VSS, HR ST 100-110'S. ONE ASSIST TO BRP. CALL TO HOSP REGARDING PAIN AND PT "REQUESTING TO RECEIVE DILAUDID IN BETWEEN OXYCODONE". ORDERS RECEIVED. MEDICATED FOR PAIN THREE TIMES T/O NIGHT. WILL REPORT OFF TO ONCOMING RN.
[2024-01-18 08:21] LABS: BASOPHILS ABSOLUTE AUTO 0.01 K/mm3 (0.00-0.23); BASOPHILS PERCENT AUTO 0 % (0-2); EOSINOPHILS PERCENT AUTO 0 % (0-6); Hematocrit 25.5 % (33.0-51.0); Hemoglobin 8.2 g/dL (11.5-16.0); IMMATURE GRAN PERCENT AUTO 1 % (0-1); LYMPHOCYTES ABSOLUTE AUTO 3.17 K/mm3 (0.84-5.20); LYMPHOCYTES PERCENT AUTO 32 % (21-46); MONOCYTES ABSOLUTE AUTO 1.08 K/mm3 (0.16-1.47); MONOCYTES PERCENT AUTO 11 % (4-13); Mean Corpuscular HGB 27.1 pg (26.0-34.0); Mean Corpuscular HGB Conc 32.2 g/dL (31.5-36.5); Mean Corpuscular Volume 84 fL (80-100); Mean Platelet Volume 11.1 fL (9.1-12.4); NEUTROPHILS ABSOLUTE AUTO 5.64 K/mm3 (1.96-9.15); NEUTROPHILS PERCENT AUTO 56 % (41-73); NRBC ABSOLUTE 0.09 K/mm3 (0.00-0.02); NRBC Auto 0.9 /100 WBC (0.0-0.2); Platelet Count 324 K/mm3 (150-400); RDW Standard Deviation 48.9 fL (35.1-46.3); Red Blood Cell Count 3.03 M/mm3 (3.80-5.20)
--- NOTE | 2024-01-18 08:25 | NUR ---
ASSUMED CARE OF PT @ 0700, BEDSIDE REPORT RECEIVED FROM [facility] NURSE. PT A&OX4, FOLLOWING COMMANDS, DIEHL, AMBULATES WITH WALKER AND SBA. REMAINS ON BASELINE 3LPM O2 VIA NC, WHEEZES T/O. C/O CHRONIC PAIN, MEDICATED PER MAY. TOLERATING PO INTAKE. USING BEDSIDE COMMODE. PT STATES " I FEEL MUCH BETTER".
[2024-01-18 08:43] LABS: Albumin, Blood 2.6 g/dL (3.4-5.0); Albumin/Globulin Ratio 0.7 (0.8-1.8); Bilirubin, Total 0.5 mg/dL (0.1-1.0); Bun/Creatinine Ratio 24.2 (12.0-20.0); Calcium, Blood 9.5 mg/dL (8.5-10.1); Creatinine, Blood 0.95 mg/dL (0.40-1.00); Globulin, Blood 3.8 g/dL (2.2-4.0); Magnesium, Blood 2.4 mg/dL (1.6-2.4); Phosphorus, Blood 2.9 mg/dL (2.5-4.9); Potassium, Blood 3.4 mmol/L (3.5-5.5); Total Protein, Blood 6.4 g/dL (6.4-8.2)
[2024-01-18] MEDS ORDERED: Potassium Chloride 20 MEQ/15 ML UDC PO ONE (09:00)
[2024-01-18] MEDS ORDERED: Spironolactone 50 MG Tab PO SCH (09:00)
[2024-01-18] MEDS ORDERED: Clopidogrel Bisulfate 75 MG Tab PO SCH (09:00)
[2024-01-18] MEDS ORDERED: Nicotine 21 MG PATCH TOP SCH (09:00)
[2024-01-18] MEDS ORDERED: ELIQUIS5 M2 PO (09:09)
[2024-01-18] MEDS ORDERED: Atorvastatin 40 MG Tab PO SCH (18:00)
--- NOTE | 2024-01-18 18:18 | NUR ---
SHIFT SUMMARY PT REMAINS A&OX4, PLEASANT AND COOPERATIVE WITH CARE. CONTINUES TO INTERMITTENTLY COUGH, NONPRODUCTIVE. THIS RN DISCUSSED THE NEED FOR PT TO QUIT SMOKING, PT NOT INTERESTED. PT AMBULATING WELL TO THE BS, NO BM TODAY, REFUSES BOWEL CARE MEDS. TOLERATING PO INTAKE. NOW MED TELE STATUS.
[2024-01-19 04:51] VITALS: BP 106/68
--- NOTE | 2024-01-19 05:37 | NUR ---
SHIFT SUMMARY NO ACUTE EVENTS T/O NIGHT. PT A/O X 4. FOLLOWS DIRECTIONS AND MOVES ALL EXTREMITIES. STATES "I'M FEELING STRONGER". VSS, ON 3L VIA NC. SR RATE 90-110'S. ONE PERSON ASSIST TO BSC. MEDICATED FOR PAIN X 3 THIS SHIFT. WILL REPORT OFF TO ONCOMING RN.
[2024-01-19] MEDS ORDERED: Aldactone50 MG PO (07:41)
[2024-01-19 08:43] VITALS: BP 115/73
[2024-01-19 08:44] LABS: BASOPHILS ABSOLUTE AUTO 0.01 K/mm3 (0.00-0.23); BASOPHILS PERCENT AUTO 0 % (0-2); EOSINOPHILS PERCENT AUTO 0 % (0-6); Hematocrit 27.5 % (33.0-51.0); Hemoglobin 8.7 g/dL (11.5-16.0); IMMATURE GRAN ABSOLUTE AUTO 0.08 K/mm3 (0.00-0.10); IMMATURE GRAN PERCENT AUTO 1 % (0-1); LYMPHOCYTES ABSOLUTE AUTO 3.77 K/mm3 (0.84-5.20); LYMPHOCYTES PERCENT AUTO 33 % (21-46); MONOCYTES ABSOLUTE AUTO 0.92 K/mm3 (0.16-1.47); MONOCYTES PERCENT AUTO 8 % (4-13); Mean Corpuscular HGB 27.1 pg (26.0-34.0); Mean Corpuscular HGB Conc 31.6 g/dL (31.5-36.5); Mean Corpuscular Volume 86 fL (80-100); Mean Platelet Volume 11.5 fL (9.1-12.4); NEUTROPHILS ABSOLUTE AUTO 6.82 K/mm3 (1.96-9.15); NEUTROPHILS PERCENT AUTO 59 % (41-73); NRBC ABSOLUTE 0.06 K/mm3 (0.00-0.02); NRBC Auto 0.5 /100 WBC (0.0-0.2); Platelet Count 321 K/mm3 (150-400); RDW Coefficient Variation 16.7 % (11.7-14.2); RDW Standard Deviation 52.2 fL (35.1-46.3); Red Blood Cell Count 3.21 M/mm3 (3.80-5.20)
[2024-01-19 09:00] VITALS: BP 107/73
[2024-01-19] MEDS ORDERED: Isosorbide Mono30 MG PO (09:02)
[2024-01-19 09:18] LABS: Albumin, Blood 2.7 g/dL (3.4-5.0); Albumin/Globulin Ratio 0.7 (0.8-1.8); Bilirubin, Total 0.5 mg/dL (0.1-1.0); Calcium, Blood 9.6 mg/dL (8.5-10.1); Creatinine, Blood 0.85 mg/dL (0.40-1.00); Globulin, Blood 3.8 g/dL (2.2-4.0); Potassium, Blood 3.4 mmol/L (3.5-5.5); Total Protein, Blood 6.5 g/dL (6.4-8.2)
[2024-01-19] MEDS ORDERED: PREG300 PO (09:43)
[2024-01-19] MEDS ORDERED: GABA300 PO (09:45)
[2024-01-19] MEDS ORDERED: Robaxin750 MG PO (09:46)
[2024-01-19] MEDS ORDERED: ROFLUMILAST250 MCG PO (09:48)
[2024-01-19] MEDS ORDERED: ANORO ELLIPTA1 EAC1 IH (09:49)
[2024-01-19] MEDS ORDERED: OxyCODONE HCL 5 MG TAB PO PRN (09:50)
[2024-01-19] MEDS ORDERED: DOXY100 PO (12:19)
[2024-01-19] MEDS ORDERED: FURO40 PO (12:19)
[2024-01-19] MEDS ORDERED: PRED20 PO (12:20)
[2024-01-19] MEDS ORDERED: PANT40 PO (12:21)
[2024-01-19] MEDS ORDERED: Chantix1 MG PO (12:22)
[2024-01-19] MEDS ORDERED: POTA20LUD PO (12:22)
[2024-01-19] MEDS ORDERED: METO50ER PO (12:27)
--- NOTE | 2024-01-19 13:06 | NUR ---
SHIFT SUMMARY PT A&OX4, FOLLOWING COMMANDS, AMBULATES WELL WITH WALKER. STATES "I FEEL MUCH BETTER TODAY AND AM READY TO GO HOME". VSS, REMAINS ON BASELINE O2 VIA NC. TOLERATING PO INTAKE WELL. HAS NO OTHER COMPLAINTS OR CONCERNS. UNDERSTANDING OF DISCHARGE ORDERS TO F/U WITH PCP. ALSO HAD A LONG DISCUSSION WITH DR CHARLES AND THIS RN REGARDING HER NEED TO QUIT SMOKING. PT MUCH MORE RECEPTIVE TODAY. MEDICATIONS FAXED TO [facility], PT BEING SENT HOME WITH SPOUSE.
[2024-01-19] MEDS ORDERED: Apixaban 5 MG Tab PO SCH (21:00)
== END 2024-01-19 13:30 | disposition home or self-care (01) | DRG 811 ==
LOC: ER 14:32 → ICUE 17:55
PROVIDERS: Family Medicine; Student in an Organized Health Care Education/Training Program; ADMIT Family Medicine
PROC: 30233N1 Transfusion of Nonautologous Red Blood Cells into Peripheral Vein, Percutaneous Approach (ICD-10-PCS; principal; 2024-01-16)
PROC: 3E03329 Introduction of Other Anti-infective into Peripheral Vein, Percutaneous Approach (ICD-10-PCS; 2024-01-16)
DX: D62 Acute posthemorrhagic anemia (principal); A41.9 Sepsis, unspecified organism; J96.21 Acute and chronic respiratory failure with hypoxia; I50.43 Acute on chronic combined systolic (congestive) and diastolic (congestive) heart failure; J96.22 Acute and chronic respiratory failure with hypercapnia; J44.1 Chronic obstructive pulmonary disease with (acute) exacerbation; F17.203 Nicotine dependence unspecified, with withdrawal; F11.20 Opioid dependence, uncomplicated; Z66 Do not resuscitate; Z71.6 Tobacco abuse counseling; I25.10 Atherosclerotic heart disease of native coronary artery without angina pectoris; N18.30 Chronic kidney disease, stage 3 unspecified; E11.22 Type 2 diabetes mellitus with diabetic chronic kidney disease; F41.9 Anxiety disorder, unspecified; E11.51 Type 2 diabetes mellitus with diabetic peripheral angiopathy without gangrene; I70.0 Atherosclerosis of aorta; K21.9 Gastro-esophageal reflux disease without esophagitis; F32.9 Major depressive disorder, single episode, unspecified; D63.1 Anemia in chronic kidney disease; E55.9 Vitamin D deficiency, unspecified; E78.5 Hyperlipidemia, unspecified; M79.7 Fibromyalgia; M54.50 Low back pain, unspecified; G89.29 Other chronic pain; M62.84 Sarcopenia; Z99.81 Dependence on supplemental oxygen; Z95.5 Presence of coronary angioplasty implant and graft; Z98.890 Other specified postprocedural states; Z88.6 Allergy status to analgesic agent; Z88.5 Allergy status to narcotic agent; Z88.0 Allergy status to penicillin; Z88.8 Allergy status to other drugs, medicaments and biological substances; Z91.018 Allergy to other foods; Z88.2 Allergy status to sulfonamides; Z79.02 Long term (current) use of antithrombotics/antiplatelets; Z79.899 Other long term (current) drug therapy; Z90.710 Acquired absence of both cervix and uterus
CPT/HCPCS: 0241U; 36415; 36430; 51701; 71045; 80053; 82272; 82803; 82947; 83735; 83880; 84100; 84484; 85014; 85018; 85025; 86850; 86900; 86901; 86923; 93005; 93010; 93306; 93925; 93970; 94640; 94644; 94664; 94760; 94762; 96374; 99291-25; 99407; A9270; J1650; J1940; J1956; J2270; J2405; J2470; J2919; J7030; J7050; P9016

== ENCOUNTER 2024-03-20 00:04 | Inpatient (IN) | payer OTHER ==
[~2024-03-20] VITALS: Ht 170.2 cm; Wt 72.9 kg
[2024-03-20] VITALS (19 sets, daily range): BP systolic 104–163; BP diastolic 48–86
[~2024-03-20 00:04] MED LIST changes: +ANORO ELLIPTA1 EAC1 IH; +Aldactone50 MG PO; +Chantix1 MG PO; +ELIQUIS5 M2 PO; +FURO40 PO; +Methocarbamol500 MG PO; +POTA20LUD PO; +PRED20 PO; +PREG300 PO; +ROFLUMILAST250 MCG PO; +Robaxin750 MG PO
[2024-03-20] MEDS ORDERED: NS 1,000 ML IV SCH (00:35)
[2024-03-20 01:06] LABS: Albumin, Blood 2.6 g/dL (3.4-5.0); Albumin/Globulin Ratio 0.6 (0.8-1.8); Bilirubin, Total 0.4 mg/dL (0.1-1.0); Bun/Creatinine Ratio 17.2 (12.0-20.0); Calcium, Blood 9.3 mg/dL (8.5-10.1); Creatinine, Blood 1.16 mg/dL (0.40-1.00); Globulin, Blood 4.5 g/dL (2.2-4.0); Potassium, Blood 5.2 mmol/L (3.5-5.5); Total Protein, Blood 7.1 g/dL (6.4-8.2)
[2024-03-20 01:06] LABS: BASOPHILS ABSOLUTE AUTO 0.04 K/mm3 (0.00-0.23); BASOPHILS PERCENT AUTO 0 % (0-2); EOSINOPHILS ABSOLUTE AUTO 0.01 K/mm3 (0.00-0.68); EOSINOPHILS PERCENT AUTO 0 % (0-6); IMMATURE GRAN ABSOLUTE AUTO 0.16 K/mm3 (0.00-0.10); IMMATURE GRAN PERCENT AUTO 1 % (0-1); LYMPHOCYTES ABSOLUTE AUTO 1.11 K/mm3 (0.84-5.20); LYMPHOCYTES PERCENT AUTO 6 % (21-46); MONOCYTES ABSOLUTE AUTO 1.25 K/mm3 (0.16-1.47); MONOCYTES PERCENT AUTO 6 % (4-13); Mean Corpuscular HGB 22.1 pg (26.0-34.0); Mean Corpuscular HGB Conc 30.2 g/dL (31.5-36.5); Mean Corpuscular Volume 73 fL (80-100); Mean Platelet Volume 10.8 fL (9.1-12.4); NEUTROPHILS PERCENT AUTO 87 % (41-73); NRBC ABSOLUTE 0.04 K/mm3 (0.00-0.02); NRBC Auto 0.2 /100 WBC (0.0-0.2); Platelet Count 293 K/mm3 (150-400); RDW Coefficient Variation 19.4 % (11.7-14.2); RDW Standard Deviation 51.1 fL (35.1-46.3); Red Blood Cell Count 2.35 M/mm3 (3.80-5.20); White Blood Cell Count 20.27 K/mm3 (4.00-11.30)
[2024-03-20 01:10] LABS: Hematocrit 17.2 % (33.0-51.0); Hemoglobin 5.2 g/dL (11.5-16.0)
[2024-03-20] MEDS ORDERED: Doxycycline Hyclate 100 MG TAB PO ONE (01:10)
[2024-03-20] MEDS ORDERED: CefTRIAXone Sodium 1,000 MG in NS 50 ML IV ONE (01:10)
[2024-03-20 01:50] LABS: Influenza A, PCR NEGATIVE (NEGATIVE); Influenza B, PCR NEGATIVE (NEGATIVE); Resp Syncytial Virus, PCR NEGATIVE (NEGATIVE); SARS-Cov-2 (COVID-19) PCR, MMC NEGATIVE (NEGATIVE)
[2024-03-20] MEDS ORDERED: PredniSONE 20 MG Tab PO SCH (02:52)
[2024-03-20] MEDS ORDERED: Albuterol 2.5 MG/3 ML VIAL INH PRN (03:00)
[2024-03-20] MEDS ORDERED: FLU VACC TS2024-25(6MOS UP)/PF 45 MCG/0.5 ML SYRINGE IM ONE (03:00)
[2024-03-20] MEDS ORDERED: Ipratropium/Albuterol SulF 2.5-0.5MG/3 ML Amp INH SCH (03:00)
[2024-03-20] MEDS ORDERED: Furosemide 10 MG/ML 4ML Vial IV SCH ×2 (03:00→18:00)
[2024-03-20 05:31] LABS: BASOPHILS ABSOLUTE AUTO 0.08 K/mm3 (0.00-0.23); BASOPHILS PERCENT AUTO 0 % (0-2); EOSINOPHILS ABSOLUTE AUTO 0.01 K/mm3 (0.00-0.68); EOSINOPHILS PERCENT AUTO 0 % (0-6); Hematocrit 19.9 % (33.0-51.0); IMMATURE GRAN ABSOLUTE AUTO 0.23 K/mm3 (0.00-0.10); IMMATURE GRAN PERCENT AUTO 1 % (0-1); LYMPHOCYTES ABSOLUTE AUTO 1.43 K/mm3 (0.84-5.20); LYMPHOCYTES PERCENT AUTO 6 % (21-46); MONOCYTES ABSOLUTE AUTO 1.47 K/mm3 (0.16-1.47); MONOCYTES PERCENT AUTO 7 % (4-13); Mean Corpuscular HGB 22.7 pg (26.0-34.0); Mean Corpuscular HGB Conc 30.2 g/dL (31.5-36.5); Mean Corpuscular Volume 75 fL (80-100); Mean Platelet Volume 10.4 fL (9.1-12.4); NEUTROPHILS ABSOLUTE AUTO 18.97 K/mm3 (1.96-9.15); NEUTROPHILS PERCENT AUTO 86 % (41-73); NRBC ABSOLUTE 0.02 K/mm3 (0.00-0.02); NRBC Auto 0.1 /100 WBC (0.0-0.2); Platelet Count 313 K/mm3 (150-400); RDW Coefficient Variation 19.7 % (11.7-14.2); Red Blood Cell Count 2.64 M/mm3 (3.80-5.20); White Blood Cell Count 22.19 K/mm3 (4.00-11.30)
[2024-03-20 06:00] LABS: Albumin, Blood 2.5 g/dL (3.4-5.0); Albumin/Globulin Ratio 0.6 (0.8-1.8); Bilirubin, Total 0.4 mg/dL (0.1-1.0); Bun/Creatinine Ratio 16.5 (12.0-20.0); Calcium, Blood 9.2 mg/dL (8.5-10.1); Creatinine, Blood 1.15 mg/dL (0.40-1.00); Globulin, Blood 4.5 g/dL (2.2-4.0)
[2024-03-20 06:01] LABS: IMMATURE RETIC FRACTION 7.3 % (2.3-16.0); RETIC HGB EQUIVALENT 16.6 pg (28.20-36.60); RETICULOCYTE ABSOLUTE 0.015 M/mm3 (0.0200-0.1100); RETICULOCYTE COUNT PERCENT 0.58 % (0.50-2.50)
--- NOTE | 2024-03-20 08:13 | NUR ---
DURING BEDSIDE SHIFT REPORT WITH JAZZ ALCOCER AND LOS HERNANDEZ RN, THE PT'S CHART, LINES, AND BLOOD TRANSFUSION WERE CHECKED. DOCUMENTATION/UNIT ISSUE REPORT FROM THE ER ABOUT THE BLOOD TRANSFUSION WAS NOT SENT UP. APARTMENT HOTEL MANAGER JENNIFFER WAS CALLED AND ASKED TO REQUEST IT STAT FROM THE ER BECAUSE THE PT'S RATE FOR BLOOD WAS AT 75CC/HR AND THE BAG WAS ALMOST EMPTY. UNIT OF BLOOD WAS STOPPED AT 0727. THE DOCUMENTAION SHEET FROM ER WAS TUBED TO PCU AND IT WAS OBSERVED THAT THE BLOOD WAS STARTED AT 0240. THIS INFUSED FOR >4HRS. PT ASSESSED, VS TAKEN, DISCUSSED WITH APARTMENT HOTEL MANAGER, SUPERVISOR OF COMMUNICATIONS, AND THE BLOOD BANK. DR. NARVAEZ WAS CALLED WANTED TO HOLD OFF ON DOING THE SECOND UNIT OF BLOOD AT THIS TIME AND REPEAT A H&H ABOUT 0900. NO OTHER ORDERS AT THIS TIME. SEE NOTES FOR UPDATES.
[2024-03-20] MEDS ORDERED: Doxycycline Hyclate 100 MG in Dextrose 5% 250 ML IV SCH (09:00)
[2024-03-20 09:14] LABS: Hematocrit 21.9 % (33.0-51.0); Hemoglobin 6.9 g/dL (11.5-16.0)
[2024-03-20] MEDS ORDERED: NS 250 ML IV PRN (10:05)
[2024-03-20 10:47] LABS: Percent Saturation 3.1 % (15.0-50.0)
--- NOTE | 2024-03-20 11:35 | NUR ---
PT RECIEVING A SECOND UNIT OF PRBC. SHE IS REPORTING NAUSEA, VS REMAIN STABLE. PT DENIES ITCHING, DIZZINESS, INCREASED SOB, HEADACHE, AND DENIES ANGINA. DR. NARVAEZ CALLED AND STATED SHE WILL BE ADDING AN ANTIEMETIC AND PAIN MEDICATIONS FOR THE PT.
[2024-03-20] MEDS ORDERED: FentaNYL Citrate 50 MCG/ML 2 ML Injection IV PRN ×2 (11:40→17:50)
[2024-03-20] MEDS ORDERED: Ondansetron HCl 2 MG / ML 2ML Vial IV PRN (11:40)
[2024-03-20] MEDS ORDERED: Methocarbamol 500 MG Tab PO PRN (12:45)
[2024-03-20] MEDS ORDERED: Mometasone/Formoterol MDI 200/5 mcg 13 GM INH SCH (12:55)
[2024-03-20] MEDS ORDERED: Sod Ferric Gluc Complx/Sucrose 125 MG in NS 100 ML IV SCH (13:00)
[2024-03-20 14:58] LABS: Hematocrit 24.3 % (33.0-51.0); Hemoglobin 7.8 g/dL (11.5-16.0)
[2024-03-20] MEDS ORDERED: Pantoprazole Sodium 40 MG Tab PO SCH (16:30)
[2024-03-20] MEDS ORDERED: Pantoprazole Sodium 40 MG Injection IV SCH (16:30)
--- NOTE | 2024-03-20 17:30 | NUR ---
SHIFT SUMMARY PT IS A&OX4, PLEASANT AND COOPERATIVE WITH CARE. VSS ON 1L NC MUCH OF THE DAY, PT NOW DOING WELL ON RA, SATS >92%. PT ON TELEMETRY, ST IN THE 110'S -120'S. TRANSFUSED 2 UNITS OF PRBC FOR A HGB OF 5.3, CURRENT HGB IS 7.8. C/O 6/10 PAIN IN HER FEET AND BACK, MEDICATED WITH PRN 12.5 MCG IV FENTANYL. X1 ASSIST TO BSC WITH FWW. VOIDING LARGE AMOUNTS OF CLEAR, YELLOW URINE. PT HAS HAD 4 SOFT BM'S THIS SHIFT. TOLERATING A HEART HEALTHY DIET AND FOLLOWING A 1800 ML FLUID RESTRICTION. BED IN LOWEST POSITION, CALL LIGHT WITHIN REACH.
[2024-03-20] MEDS ORDERED: Spironolactone 50 MG Tab PO SCH (18:00)
[2024-03-20] MEDS ORDERED: Metoprolol Tartrate 5 ML IV ONE (18:22)
[2024-03-20] MEDS ORDERED: Metoprolol Tartrate 1 MG/ML 5 ML VIAL IV ONE (18:30)
[2024-03-20] MEDS ORDERED: Metoprolol Tartrate 50 MG Tab PO ONE (18:35)
[2024-03-20] MEDS ORDERED: Benzonatate 100 MG Cap PO PRN (18:40)
[2024-03-20] MEDS ORDERED: Montelukast Sodium 10 MG Tab PO SCH ×2 (18:40→21:00)
[2024-03-20] MEDS ORDERED: Furosemide 10 MG/ML 4ML Vial IV ONE (18:45)
--- NOTE | 2024-03-20 19:25 | NUR ---
AT ABOUT 1810 THE PT WAS GETTING UP TO THE [facility]. WHILE ON THE BSC SHE HAD A COUGHING FIT AND WENT INTO SUSTAINED SVT 150'S-160'S. THE PT ATTEMPTED TO BARE DOWN WHILE ON THE [facility] AND SHE ATTEMPTED THE VALSALVA MANEUVER AND IT WAS UNSUCCESSFUL. BUDGET CLERK CALLED PERLA KENNY AND UPDATEED HIM. HE WANTED AN EKG AND WAS GOING TO COME TO THE ROOM. AN EKG WAS TAKEN AND HE ORDERED 2.5MG LOPRESSOR IV TO SLOW THE RATE DOWN TO DETERMINE IF THE PT WAS IN ST OR AFLUTTER. A SECOND EKG WAS TAKEN PER PARTS COUNTERPERSON REQUEST. AFTER RATE SLOWED TO 120'S, DR. AN STATED THAT HE WAS GOING TO GIVE HER 50MG METOPROLOL TARTRATE AND START THE PT ON COUGH MEDICATIONS. HE ORDERED REPEAT LABS AND WNATED THE 40MG LASIX IV GIVEN IF MAG >2 AND K> 4. HE ORDERED A STAT CHEST XRAY WELL. JAZZ ALCOCER TO TAKE OVER CARE.
[2024-03-20 19:32] LABS: Hematocrit 26.1 % (33.0-51.0); Hemoglobin 8.2 g/dL (11.5-16.0)
[2024-03-20 19:43] LABS: Bun/Creatinine Ratio 18.8 (12.0-20.0); Calcium, Blood 10.1 mg/dL (8.5-10.1); Creatinine, Blood 0.85 mg/dL (0.40-1.00); Magnesium, Blood 2.2 mg/dL (1.6-2.4); Potassium, Blood 3.9 mmol/L (3.5-5.5)
--- NOTE | 2024-03-20 20:32 | NUR ---
NOTIFICATION THIS RN PHONED ZOYA SALDIVAR REGARDING PATIENT LABS. K 3.9, MG 2.2. PER JANNA, GIVE THE 40MG OF LASIX THAT IS DUE NOW. 20 MEQ KCL PO ONE TIME ORDERED TO BE GIVEN NOW.
[2024-03-20] MEDS ORDERED: Potassium Chloride 10 Meq Tablet SA PO ONE (20:35)
[2024-03-20] MEDS ORDERED: Amitriptyline HCl 25 MG Tab PO SCH (21:00)
[2024-03-20] MEDS ORDERED: Apixaban 5 MG Tab PO SCH (21:00)
[2024-03-20] MEDS ORDERED: Pregabalin 75 MG Cap PO SCH (21:00)
[2024-03-20] MEDS ORDERED: Isosorbide Mononitrate 60 MG TABCR PO SCH (21:00)
[2024-03-20] MEDS ORDERED: Lactobacil 2-S.Thermo-Bifido 1 1 Cap PO SCH (21:00)
[2024-03-21] VITALS (9 sets, daily range): BP systolic 109–132; BP diastolic 61–73
[2024-03-21 05:18] LABS: BASOPHILS ABSOLUTE AUTO 0.05 K/mm3 (0.00-0.23); BASOPHILS PERCENT AUTO 0 % (0-2); EOSINOPHILS ABSOLUTE AUTO 0.02 K/mm3 (0.00-0.68); EOSINOPHILS PERCENT AUTO 0 % (0-6); Hematocrit 27.1 % (33.0-51.0); Hemoglobin 8.5 g/dL (11.5-16.0); IMMATURE GRAN ABSOLUTE AUTO 0.34 K/mm3 (0.00-0.10); IMMATURE GRAN PERCENT AUTO 2 % (0-1); LYMPHOCYTES ABSOLUTE AUTO 2.68 K/mm3 (0.84-5.20); LYMPHOCYTES PERCENT AUTO 14 % (21-46); MONOCYTES ABSOLUTE AUTO 1.38 K/mm3 (0.16-1.47); MONOCYTES PERCENT AUTO 7 % (4-13); Mean Corpuscular HGB Conc 31.4 g/dL (31.5-36.5); Mean Corpuscular Volume 77 fL (80-100); Mean Platelet Volume 10.7 fL (9.1-12.4); NEUTROPHILS PERCENT AUTO 77 % (41-73); NRBC ABSOLUTE 0.11 K/mm3 (0.00-0.02); NRBC Auto 0.6 /100 WBC (0.0-0.2); Platelet Count 363 K/mm3 (150-400); RDW Coefficient Variation 18.9 % (11.7-14.2); RDW Standard Deviation 51.8 fL (35.1-46.3); Red Blood Cell Count 3.54 M/mm3 (3.80-5.20); White Blood Cell Count 19.37 K/mm3 (4.00-11.30)
[2024-03-21 05:37] LABS: Bun/Creatinine Ratio 16.6 (12.0-20.0); Calcium, Blood 10.2 mg/dL (8.5-10.1); Creatinine, Blood 0.91 mg/dL (0.40-1.00)
[2024-03-21] MEDS ORDERED: CefTRIAXone Sodium 1,000 MG in NS 100 ML IV SCH (06:00)
--- NOTE | 2024-03-21 06:48 | NUR ---
SHIFT SUMMARY PT TACHYCARDIC 110'S - 140'S, PROGRESSING THROUGHOUT THE NIGHT. THIS AM, DR. DE JESUS ORDERED FOR 0900 METOPROLOL DOSE TO BE GIVEN EARLY. PT BP STABLE. HR NOW 120'S. PT ENDORSING CHRONIC BACK PAIN, REQUESTING TO RESUME HER HOME DOSE OF OXYCODONE. PAIN MEDS GIVEN PER EMAR.
[2024-03-21] MEDS ORDERED: Metoprolol Succinate 50 MG TABCR PO SCH (09:00)
[2024-03-21] MEDS ORDERED: Clopidogrel Bisulfate 75 MG Tab PO SCH (09:00)
[2024-03-21] MEDS ORDERED: Atorvastatin 40 MG Tab PO SCH (09:00)
[2024-03-21] MEDS ORDERED: OxyCODONE HCL 5 MG TAB PO PRN (10:10)
[2024-03-21] MEDS ORDERED: Guaifenesin/Dextromethorphan Syrup 5 ML UDC PO PRN (10:10)
[2024-03-21] MEDS ORDERED: Metoprolol Tartrate 1 MG/ML 5 ML VIAL IV ONE (10:50)
[2024-03-21] MEDS ORDERED: Metoprolol Tartrate 1 MG/ML 5 ML VIAL IV PRN (15:05)
--- NOTE | 2024-03-21 18:12 | NUR ---
SHIFT SUMMARY PT IS A&OX4, PLEASANT AND APPRECIATIVE. BP STABLE, ST 120-140'S, ONE TIME DOSE OF 5MG IV HYDRALAZINE GIVEN. AFEBRILE, O2 SATS >94% ON 1-2L NC. C/O 7/10 PAIN IN HER BACK AND FEET, MEDICATED WITH PRN 5MG PO OXYCODONE. LITTLE EFFECT PT TAKES 10MG OXYCODONE AT HOME. PT HAS BEEN SLEEPING ON AND OFF TODAY SHE HAS NOT BEEN SLEEPING WELL D/T COUGHING. TOLERATING A HEART HEALTHY DIET WITH 1800 ML/DAY FLUID RESTRICTION. X1 ASSIST TO BSC. VOIDING LARGE AMOUNTS OF CLEAR, LIGHT YELLOW URINE. PT ALSO HAS STRESS INCONTINENCE FROM COUGHING, PULL-UP ON AND CHANGED NEEDED. NO BM THIS SHIFT. BED IN LOWEST POSITION, CALL LIGHT WITHIN REACH.
[2024-03-21] MEDS ORDERED: Apixaban 5 MG Tab PO SCH (21:00)
[2024-03-22] VITALS (7 sets, daily range): BP systolic 114–128; BP diastolic 56–71
[2024-03-22 04:14] LABS: Hematocrit 27.7 % (33.0-51.0); Hemoglobin 8.3 g/dL (11.5-16.0); Mean Corpuscular HGB 23.3 pg (26.0-34.0); Mean Corpuscular Volume 78 fL (80-100); Mean Platelet Volume 10.8 fL (9.1-12.4); NRBC ABSOLUTE 0.11 K/mm3 (0.00-0.02); NRBC Auto 0.7 /100 WBC (0.0-0.2); Platelet Count 368 K/mm3 (150-400); RDW Coefficient Variation 19.8 % (11.7-14.2); RDW Standard Deviation 55.8 fL (35.1-46.3); Red Blood Cell Count 3.56 M/mm3 (3.80-5.20); White Blood Cell Count 15.36 K/mm3 (4.00-11.30)
[2024-03-22 04:34] LABS: Albumin, Blood 2.5 g/dL (3.4-5.0); Albumin/Globulin Ratio 0.5 (0.8-1.8); Bilirubin, Total 0.4 mg/dL (0.1-1.0); Bun/Creatinine Ratio 19.8 (12.0-20.0); Creatinine, Blood 0.86 mg/dL (0.40-1.00); Globulin, Blood 4.7 g/dL (2.2-4.0); Potassium, Blood 3.9 mmol/L (3.5-5.5); Total Protein, Blood 7.2 g/dL (6.4-8.2)
[2024-03-22 04:36] LABS: BAND PERCENT MAN 1 % (0-8); BASOPHILS PERCENT MAN 0 % (0-2); EOSINOPHILS PERCENT MAN 0 % (0-6); LYMPHOCYTES ABSOLUTE MAN 1.53 K/mm3 (0.84-5.20); LYMPHOCYTES PERCENT MAN 10 % (21-46); METAMYELOCYTE ABSOLUTE MAN 0.15 K/mm3 (0.00-0.00); METAMYELOCYTE PERCENT MAN 1 % (0-0); MONOCYTES ABSOLUTE MAN 0.92 K/mm3 (0.16-1.47); MONOCYTES PERCENT MAN 6 % (4-13); NEUTROPHILS ABSOLUTE MAN 12.74 K/mm3 (1.96-9.15); SEG NEUTROPHILS PERCENT MAN 82 % (41-73); TOTAL CELLS COUNTED 100
--- NOTE | 2024-03-22 04:54 | NUR ---
SHIFT SUMMARY. SHIFT HAS BEEN UNREMARKABLE. PT AOX4, PLEASANT, COOPERATIVE WITH CARE, CALLS APPROPRIATELY, ABLE TO MAKE NEEDS KNOWN. HAS BEEN ABLE TO REST COMFORTABLY THROUGHOUT MOST OF SHIFT. CALLS APPROPRIATELY AND ABLE TO MAKE NEEDS KNOWN. HAS DENIED PAIN THROUGHOUT SHIFT, DESPITE OFFERING PRN OXYCODONE. COUGH SPORADICALLY MORE HARSH AT TIMES, MANAGED VIA EMAR. HAS RAN SINUS TACH THROUGHOUT SHIFT WITH RATE SETTLING IN THE 90s-100s RANGE WHILE SLEEPING AND MORE IN THE 100s-120s RANGE WHILE AWAKE, HAVE NOT HAD TO ADMINISTER PRN LOPRESSOR THUS FAR. VITALS OTHERWISE STABLE, HAS BEEN ON 1 L O2 VIA NC THROUGHOUT SHIFT AND MAINTAINS ADEQUATE SATURATION. BED LOCKED IN LOWEST POSITION. CALL LIGHT LEFT WITHIN REACH. CONTINUING TO MONITOR.
--- NOTE | 2024-03-22 11:37 | NUR ---
MORNING SUMMARY THE PT IS A&OX4, SBA, 1P TO BATHROOM OR BSC, AND SHE CALLS APPROPRAITELY. THE PT WAS ON 1L NC AT THE BEGINNING OF THE SHIFT ANDWAS TITRAITED TO RA. SHE DID DESATURATE TO 86% AND WAS SUSTAINING. ASYMPTOMATIC. SHE WAS PLACED BACK ON 1L NC AND SP02 92-98%. THE PT DENIES ANY INCREASED SOB . ON TELE SHE HAS BEEN ST 120'S-130'S. AFTER ORAL MEDICATIONS PT'S HR 100'S-120'S., BP STABLE. EKG OBTAINED PER ORDER. PT UP IN THE CHAIR THIS MORNING. FLUID RESTRICTION ORDERED. NO ACUTE EVENTS. SEE NOTES FOR UPDATES.
[2024-03-22] MEDS ORDERED: OxyCODONE HCL 5 MG TAB PO PRN (14:05)
--- NOTE | 2024-03-22 17:12 | NUR ---
SHIFT SUMMARY PT IS A&OX4, CALLS APPROPRIATELY, AND MAKES HER NEEDS KNOWN. PT ON 1L NC AND SP02 >93%. ON TELE SHE IS ST 100'S-130'S. CURRENT HR 104. HER BP REMAINS STABLE AND DENIES ANGINA OR CHEST PRESSURE. THE PT HAS CHRONIC BACK PAIN AND WAS MEDICATED OT W/ 10MG OXYCODONE. NO ACUTE EVENTS. SEE NOTES FOR UPDATES.
[2024-03-23 00:44] VITALS: BP 111/56
[2024-03-23 03:54] LABS: BASOPHILS ABSOLUTE AUTO 0.06 K/mm3 (0.00-0.23); BASOPHILS PERCENT AUTO 0 % (0-2); EOSINOPHILS ABSOLUTE AUTO 0.02 K/mm3 (0.00-0.68); EOSINOPHILS PERCENT AUTO 0 % (0-6); Hematocrit 28.7 % (33.0-51.0); Hemoglobin 8.7 g/dL (11.5-16.0); Mean Corpuscular HGB Conc 30.3 g/dL (31.5-36.5); Mean Corpuscular Volume 79 fL (80-100); Mean Platelet Volume 10.7 fL (9.1-12.4); NRBC ABSOLUTE 0.26 K/mm3 (0.00-0.02); NRBC Auto 1.4 /100 WBC (0.0-0.2); Platelet Count 448 K/mm3 (150-400); RDW Coefficient Variation 20.6 % (11.7-14.2); RDW Standard Deviation 58.4 fL (35.1-46.3); Red Blood Cell Count 3.63 M/mm3 (3.80-5.20)
[2024-03-23 03:55] LABS: IMMATURE GRAN ABSOLUTE AUTO 0.92 K/mm3 (0.00-0.10); IMMATURE GRAN PERCENT AUTO 5 % (0-1); LYMPHOCYTES ABSOLUTE AUTO 4.09 K/mm3 (0.84-5.20); LYMPHOCYTES PERCENT AUTO 22 % (21-46); MONOCYTES ABSOLUTE AUTO 1.34 K/mm3 (0.16-1.47); MONOCYTES PERCENT AUTO 7 % (4-13); NEUTROPHILS ABSOLUTE AUTO 12.27 K/mm3 (1.96-9.15); NEUTROPHILS PERCENT AUTO 66 % (41-73)
[2024-03-23 04:14] LABS: Bun/Creatinine Ratio 23.5 (12.0-20.0); Calcium, Blood 9.6 mg/dL (8.5-10.1); Creatinine, Blood 0.9 mg/dL (0.40-1.00)
[2024-03-23 04:26] VITALS: BP 113/61
--- NOTE | 2024-03-23 06:19 | NUR ---
SHIFT SUMMARY ASSUMED CARE OF PT AT 1900. PT A&O4, COOPERATIVE IN CARE AND ABLE TO EXPRESS OWN NEEDS APPROPRIATELY. VSS AND TRIALED WEANING OFF NC AND SATURATION FLUCTUATED BETWEEN 84%-92% WHILE SLEEPING, 1L OF O2 PLACED BACK ON PT TO MAINTAIN A SATURATION ABOVE 92%. PT C/O OF BACK PAIN; PRN ANALGESICS GIVEN AND PAIN RESOLVED. BED IN LOWEST POSITION AND CALL LIGHT WITHIN REACH.
[2024-03-23 08:59] VITALS: BP 118/64
[2024-03-23] MEDS ORDERED: Empagliflozin 10 MG TAB PO SCH (09:00)
[2024-03-23] MEDS ORDERED: Losartan Potassium 25 MG Tab PO SCH (09:00)
[2024-03-23] MEDS ORDERED: LOSA25 PO (09:41)
[2024-03-23] MEDS ORDERED: DOXY100 PO (09:41)
[2024-03-23] MEDS ORDERED: JARDIANCE10 MG PO (09:41)
[2024-03-23] MEDS ORDERED: DELTASONE20 MG PO (09:42)
--- NOTE | 2024-03-23 09:57 | NUR ---
Pt alert and oriented, up in chair on 1L NC. Call robles in reach. medicated for pain. Plan for d/c today after home o2 eval. Report given to medical RN.
--- NOTE | 2024-03-23 13:08 | NUR ---
DISCHARGE SUMMARY: A&Ox4. PLEASANT AND COOPERATIVE WITH CARE. CALLS APPROPRIATELY AND IS ABLE TO ADVOCATE NEEDS EFFECTIVELY. INDEPENDENT WITH AMBULATION; SBA c FWW FOR LINE MANAGEMENT ONLY. CONTINENT OF BOWEL AND BLADDER. MEDS WHOLE WITH FLUIDS. NO PAIN OR DISCOMFORT REPORTED. MEDICATIONS FAXED TO PHARMACY. INSTRUCTED TO FOLLOW-UP WITH PCP 03/26/23 SCHEDULED. IV x2 REMOVED BY ORCHESTRA LEADER. LEFT FLOOR WITH ALL BELONGINGS AND DISCHARGE PACKET.
== END 2024-03-23 12:55 | disposition home or self-care (01) | DRG 871 ==
LOC: ER 00:04 → PCU 03:31 → ERHOLD 03:31 → PCU 06:17
PROVIDERS: Family Medicine; Nurse Practitioner Acute Care; Student in an Organized Health Care Education/Training Program; ADMIT Student in an Organized Health Care Education/Training Program
PROC: 30233N1 Transfusion of Nonautologous Red Blood Cells into Peripheral Vein, Percutaneous Approach (ICD-10-PCS; principal; 2024-03-20)
PROC: 3E03329 Introduction of Other Anti-infective into Peripheral Vein, Percutaneous Approach (ICD-10-PCS; 2024-03-21)
DX: A41.9 Sepsis, unspecified organism (principal); J18.9 Pneumonia, unspecified organism; J96.21 Acute and chronic respiratory failure with hypoxia; I50.22 Chronic systolic (congestive) heart failure; J44.0 Chronic obstructive pulmonary disease with (acute) lower respiratory infection; D62 Acute posthemorrhagic anemia; J44.1 Chronic obstructive pulmonary disease with (acute) exacerbation; I25.10 Atherosclerotic heart disease of native coronary artery without angina pectoris; N18.30 Chronic kidney disease, stage 3 unspecified; E11.22 Type 2 diabetes mellitus with diabetic chronic kidney disease; R65.20 Severe sepsis without septic shock; I08.1 Rheumatic disorders of both mitral and tricuspid valves; I27.20 Pulmonary hypertension, unspecified; F32.9 Major depressive disorder, single episode, unspecified; F41.9 Anxiety disorder, unspecified; D50.9 Iron deficiency anemia, unspecified; I25.5 Ischemic cardiomyopathy; Z28.21 Immunization not carried out because of patient refusal; Z86.718 Personal history of other venous thrombosis and embolism; Z79.01 Long term (current) use of anticoagulants; Z88.0 Allergy status to penicillin; Z88.2 Allergy status to sulfonamides; Z88.5 Allergy status to narcotic agent; Z88.8 Allergy status to other drugs, medicaments and biological substances; Z79.02 Long term (current) use of antithrombotics/antiplatelets; Z79.899 Other long term (current) drug therapy; Z95.1 Presence of aortocoronary bypass graft; Z98.890 Other specified postprocedural states; Z90.710 Acquired absence of both cervix and uterus; Z87.891 Personal history of nicotine dependence
CPT/HCPCS: 0241U; 36415; 36430; 71045; 71046; 71260; 80048; 80053; 82607; 82728; 82746; 83540; 83550; 83605; 83735; 83880; 84484; 85014; 85018; 85025; 85045; 85379; 86850; 86900; 86901; 86923; 87040; 93005; 93010; 93308; 94640; 94664; 94762; 96365; 99285-25; A9270; J0696; J1940; J2405; J2916; J3010; J7030; J7050; J7060; J7512; P9016; Q9967

== ENCOUNTER → 2024-04-22 | Outpatient (CLI) | payer OTHER ==
[~2024-04-22] MED LIST changes: +DELTASONE20 MG PO; +JARDIANCE10 MG PO; +LOSA25 PO
[2024-04-22 18:56] LABS: BASOPHILS ABSOLUTE AUTO 0.06 K/mm3 (0.00-0.23); BASOPHILS PERCENT AUTO 1 % (0-2); EOSINOPHILS ABSOLUTE AUTO 0.12 K/mm3 (0.00-0.68); EOSINOPHILS PERCENT AUTO 2 % (0-6); Hematocrit 36.3 % (33.0-51.0); Hemoglobin 11.3 g/dL (11.5-16.0); IMMATURE GRAN ABSOLUTE AUTO 0.03 K/mm3 (0.00-0.10); IMMATURE GRAN PERCENT AUTO 0 % (0-1); LYMPHOCYTES ABSOLUTE AUTO 2.94 K/mm3 (0.84-5.20); LYMPHOCYTES PERCENT AUTO 36 % (21-46); MONOCYTES ABSOLUTE AUTO 0.51 K/mm3 (0.16-1.47); MONOCYTES PERCENT AUTO 6 % (4-13); Mean Corpuscular HGB 27.2 pg (26.0-34.0); Mean Corpuscular HGB Conc 31.1 g/dL (31.5-36.5); Mean Corpuscular Volume 88 fL (80-100); Mean Platelet Volume 11.5 fL (9.1-12.4); NEUTROPHILS ABSOLUTE AUTO 4.54 K/mm3 (1.96-9.15); NEUTROPHILS PERCENT AUTO 55 % (41-73); Platelet Count 285 K/mm3 (150-400); RDW Coefficient Variation 26.5 % (11.7-14.2); RDW Standard Deviation 83.7 fL (35.1-46.3); Red Blood Cell Count 4.15 M/mm3 (3.80-5.20)
[2024-04-22 19:45] LABS: Percent Saturation 17.2 % (15.0-50.0)
[2024-04-22 20:06] LABS: Albumin, Blood 3.6 g/dL (3.4-5.0); Albumin/Globulin Ratio 0.9 (0.8-1.8); Bilirubin, Total 0.4 mg/dL (0.1-1.0); Bun/Creatinine Ratio 10.8 (12.0-20.0); Calcium, Blood 9.5 mg/dL (8.5-10.1); Creatinine, Blood 1.11 mg/dL (0.40-1.00); Globulin, Blood 3.9 g/dL (2.2-4.0); Potassium, Blood 4.7 mmol/L (3.5-5.5); Total Protein, Blood 7.5 g/dL (6.4-8.2)
== END | disposition home or self-care (01) ==
LOC: LAB 18:09 → LAB SHORT 18:09
PROVIDERS: Physician Assistant Medical
DX: E11.51 Type 2 diabetes mellitus with diabetic peripheral angiopathy without gangrene (principal); D50.8 Other iron deficiency anemias
CPT/HCPCS: 80053; 82607; 82728; 82746; 83036; 83540; 83550; 85025

== ENCOUNTER 2024-06-12 16:38 | Emergency (ER) | payer OTHER ==
[~2024-06-12] VITALS: Ht 170.2 cm; Wt 73.5 kg
[2024-06-12 17:18] LABS: Hematocrit 26.5 % (33.0-51.0); Hemoglobin 8.2 g/dL (11.5-16.0); Mean Corpuscular HGB Conc 30.9 g/dL (31.5-36.5); Mean Corpuscular Volume 90 fL (80-100); Mean Platelet Volume 10.7 fL (9.1-12.4); NRBC ABSOLUTE 0.07 K/mm3 (0.00-0.02); NRBC Auto 0.4 /100 WBC (0.0-0.2); Platelet Count 475 K/mm3 (150-400); RDW Coefficient Variation 18.9 % (11.7-14.2); RDW Standard Deviation 60.9 fL (35.1-46.3); Red Blood Cell Count 2.93 M/mm3 (3.80-5.20); White Blood Cell Count 16.38 K/mm3 (4.00-11.30)
[2024-06-12] MEDS ORDERED: Ipratropium/Albuterol SulF 2.5-0.5MG/3 ML Amp INH ONE (17:25)
[2024-06-12 17:35] LABS: BASOPHILS PERCENT MAN 0 % (0-2); EOSINOPHILS ABSOLUTE MAN 0.16 K/mm3 (0.00-0.68); EOSINOPHILS PERCENT MAN 1 % (0-6); LYMPHOCYTES ABSOLUTE MAN 2.45 K/mm3 (0.84-5.20); LYMPHOCYTES PERCENT MAN 15 % (21-46); MONOCYTES ABSOLUTE MAN 0.65 K/mm3 (0.16-1.47); MONOCYTES PERCENT MAN 4 % (4-13); SEG NEUTROPHILS PERCENT MAN 80 % (41-73); TOTAL CELLS COUNTED 100
[2024-06-12 17:49] LABS: Bun/Creatinine Ratio 8.6 (12.0-20.0); Calcium, Blood 9.4 mg/dL (8.5-10.1); Creatinine, Blood 0.93 mg/dL (0.40-1.00); Potassium, Blood 5.1 mmol/L (3.5-5.5)
[2024-06-12 18:34] LABS: Albumin, Blood 2.5 g/dL (3.4-5.0); Albumin/Globulin Ratio 0.5 (0.8-1.8); Bilirubin, Total 0.4 mg/dL (0.1-1.0); Globulin, Blood 4.8 g/dL (2.2-4.0); Magnesium, Blood 2.2 mg/dL (1.6-2.4); Total Protein, Blood 7.3 g/dL (6.4-8.2)
[2024-06-12 18:39] LABS: CORONAVIRUS COVID-19 AG Negative (NEGATIVE); INFLUENZA A AG Negative (NEGATIVE); INFLUENZA B AG Negative (NEGATIVE)
[2024-06-12 19:21] LABS: Source, Urine Clean Catch
[2024-06-12 19:27] LABS: Appearance, Urine Clear (Clear); Bilirubin, Urine Neg (Neg); Blood, Urine Neg (Neg); Glucose Qualitative, Urine Neg (Neg); Ketones, Urine Neg (Neg); Leukocyte Esterase, Urine Neg (Neg); Nitrite, Urine Neg (Neg); Protein, Urine Neg (Neg); Specific Gravity, Urine 1.005 (1.003-1.022); Urobilinogen, Urine NORM (Normal); pH, Urine 6.5 (5.0-8.0)
[2024-06-12 19:43] LABS: Color, Urine Pale Yellow (P-Yellow)
[2024-06-12] MEDS ORDERED: DOXY100 PO (20:19)
[2024-06-12] MEDS ORDERED: Doxycycline Hyclate 100 MG TAB PO ONE (20:20)
[2024-06-12 20:30] VITALS: BP 101/55
== END 2024-06-12 20:36 | disposition home or self-care (01) ==
LOC: ER 16:38
PROVIDERS: Student in an Organized Health Care Education/Training Program
DX: J44.1 Chronic obstructive pulmonary disease with (acute) exacerbation (principal); L03.116 Cellulitis of left lower limb; L03.115 Cellulitis of right lower limb; E11.22 Type 2 diabetes mellitus with diabetic chronic kidney disease; E11.51 Type 2 diabetes mellitus with diabetic peripheral angiopathy without gangrene; N18.30 Chronic kidney disease, stage 3 unspecified; F17.210 Nicotine dependence, cigarettes, uncomplicated; R06.02 Shortness of breath; R00.0 Tachycardia, unspecified; Z88.0 Allergy status to penicillin; Z88.2 Allergy status to sulfonamides; Z88.5 Allergy status to narcotic agent; Z88.1 Allergy status to other antibiotic agents; Z91.018 Allergy to other foods; Z79.02 Long term (current) use of antithrombotics/antiplatelets; Z79.01 Long term (current) use of anticoagulants; Z79.891 Long term (current) use of opiate analgesic
CPT/HCPCS: 71046; 80048; 80053; 81003; 82140; 83605; 83735; 83880; 84484; 85025; 87428-QW; 93005; 93010; 94640; 94664; 99285-25; A9270

== ENCOUNTER → 2024-06-12 | Outpatient (CLI) | payer OTHER ==
[2024-06-12 16:06] LABS: BASOPHILS ABSOLUTE AUTO 0.07 K/mm3 (0.00-0.23); BASOPHILS PERCENT AUTO 0 % (0-2); EOSINOPHILS ABSOLUTE AUTO 0.14 K/mm3 (0.00-0.68); EOSINOPHILS PERCENT AUTO 1 % (0-6); Hematocrit 26.3 % (33.0-51.0); Hemoglobin 8.1 g/dL (11.5-16.0); Mean Corpuscular HGB 27.6 pg (26.0-34.0); Mean Corpuscular HGB Conc 30.8 g/dL (31.5-36.5); Mean Corpuscular Volume 90 fL (80-100); Mean Platelet Volume 10.7 fL (9.1-12.4); NRBC ABSOLUTE 0.07 K/mm3 (0.00-0.02); NRBC Auto 0.4 /100 WBC (0.0-0.2); Platelet Count 523 K/mm3 (150-400); RDW Coefficient Variation 19.3 % (11.7-14.2); RDW Standard Deviation 62.4 fL (35.1-46.3); Red Blood Cell Count 2.93 M/mm3 (3.80-5.20)
[2024-06-12 16:07] LABS: IMMATURE GRAN ABSOLUTE AUTO 0.52 K/mm3 (0.00-0.10); IMMATURE GRAN PERCENT AUTO 3 % (0-1); LYMPHOCYTES PERCENT AUTO 19 % (21-46); MONOCYTES ABSOLUTE AUTO 0.55 K/mm3 (0.16-1.47); MONOCYTES PERCENT AUTO 4 % (4-13); NEUTROPHILS ABSOLUTE AUTO 11.42 K/mm3 (1.96-9.15); NEUTROPHILS PERCENT AUTO 73 % (41-73)
[2024-06-12 16:16] LABS: Albumin, Blood 2.7 g/dL (3.4-5.0); Albumin/Globulin Ratio 0.5 (0.8-1.8); Bilirubin, Total 0.3 mg/dL (0.1-1.0); Bun/Creatinine Ratio 5.5 (12.0-20.0); Calcium, Blood 9.6 mg/dL (8.5-10.1); Creatinine, Blood 1.09 mg/dL (0.40-1.00); Globulin, Blood 5.1 g/dL (2.2-4.0); Potassium, Blood 5.5 mmol/L (3.5-5.5); Total Protein, Blood 7.8 g/dL (6.4-8.2)
== END | disposition home or self-care (01) ==
LOC: LAB SHORT 16:02 → LAB 16:02
DX: R06.02 Shortness of breath (principal); R00.0 Tachycardia, unspecified
CPT/HCPCS: 80053; 84484; 85025

== ENCOUNTER 2024-08-09 22:30 | Inpatient (IN) | payer OTHER ==
[~2024-08-09] VITALS: Ht 170.2 cm; Wt 72.5 kg
[~2024-08-09 22:30] MED LIST changes: +AMIT50 PO; -Amitriptyline H10 MG PO
[2024-08-09] MEDS ORDERED: MethylPREDNISolone Sod Succ 125 MG Vial IV ONE (22:45)
[2024-08-09] MEDS ORDERED: Ipratropium/Albuterol SulF 2.5-0.5MG/3 ML Amp INH ONE (22:45)
[2024-08-09] MEDS ORDERED: Albuterol 2.5 MG/3 ML VIAL INH SCH (22:45)
[2024-08-09] MEDS ORDERED: FentaNYL Citrate 50 MCG/ML 2 ML Injection IV ONE (22:55)
[2024-08-09] MEDS ORDERED: Doxycycline Hyclate 100 MG in Dextrose 5% 250 ML IV ONE (22:55)
[2024-08-09 23:10] LABS: BASOPHILS ABSOLUTE AUTO 0.05 K/mm3 (0.00-0.23); BASOPHILS PERCENT AUTO 0 % (0-2); EOSINOPHILS ABSOLUTE AUTO 0.01 K/mm3 (0.00-0.68); EOSINOPHILS PERCENT AUTO 0 % (0-6); IMMATURE GRAN ABSOLUTE AUTO 0.39 K/mm3 (0.00-0.10); IMMATURE GRAN PERCENT AUTO 1 % (0-1); LYMPHOCYTES PERCENT AUTO 5 % (21-46); MONOCYTES ABSOLUTE AUTO 1.36 K/mm3 (0.16-1.47); MONOCYTES PERCENT AUTO 5 % (4-13); Mean Corpuscular HGB 22.9 pg (26.0-34.0); Mean Corpuscular HGB Conc 29.7 g/dL (31.5-36.5); Mean Corpuscular Volume 77 fL (80-100); Mean Platelet Volume 10.5 fL (9.1-12.4); NEUTROPHILS ABSOLUTE AUTO 25.49 K/mm3 (1.96-9.15); NEUTROPHILS PERCENT AUTO 89 % (41-73); Platelet Count 414 K/mm3 (150-400); RDW Coefficient Variation 17.9 % (11.7-14.2); RDW Standard Deviation 50.3 fL (35.1-46.3); Red Blood Cell Count 2.27 M/mm3 (3.80-5.20)
[2024-08-09 23:14] LABS: Hematocrit 17.5 % (33.0-51.0); Hemoglobin 5.2 g/dL (11.5-16.0)
[2024-08-09 23:15] LABS: Base Excess Venous -1.7 mmol/L; Bicarbonate Venous 23.1 mmol/L (24.0-30.0); PCO2 Venous 45.7 mmHg (38-42); pH Blood Venous 7.33 (7.34-7.37)
[2024-08-09] MEDS ORDERED: CefTRIAXone Sodium 1,000 MG in NS 50 ML IV ONE (23:25)
[2024-08-09 23:28] LABS: Albumin, Blood 2.7 g/dL (3.4-5.0); Albumin/Globulin Ratio 0.6 (0.8-1.8); Bilirubin, Total 0.5 mg/dL (0.1-1.0); Bun/Creatinine Ratio 10.5 (12.0-20.0); Calcium, Blood 8.9 mg/dL (8.5-10.1); Creatinine, Blood 1.91 mg/dL (0.40-1.00); Globulin, Blood 4.6 g/dL (2.2-4.0); Magnesium, Blood 1.8 mg/dL (1.6-2.4); Potassium, Blood 5.3 mmol/L (3.5-5.5); Total Protein, Blood 7.3 g/dL (6.4-8.2)
[2024-08-10] VITALS (51 sets, daily range): BP systolic 87–164; BP diastolic 45–122
[2024-08-10] MEDS ORDERED: Albuterol 2.5 MG/3 ML VIAL INH SCH (00:15)
[2024-08-10] MEDS ORDERED: Ondansetron HCl 2 MG / ML 2ML Vial IV PRN (01:00)
[2024-08-10] MEDS ORDERED: Ipratropium/Albuterol SulF 2.5-0.5MG/3 ML Amp INH PRN (01:05)
[2024-08-10] MEDS ORDERED: LevoFLOXacin 750 MG/D5W 150ML 150 ML IV ONE (01:15)
[2024-08-10] MEDS ORDERED: Magnesium Sulf 2 GM/Water 50ML 50 ML IV ONE (01:25)
[2024-08-10] MEDS ORDERED: Ketamine HCl 100 MG / ML 5ML Vial IV ONE (02:05)
[2024-08-10] MEDS ORDERED: NS 500 ML IV SCH (02:15)
[2024-08-10] MEDS ORDERED: dexmedeTOMIDine 100 ML IV SCH (05:25)
[2024-08-10] MEDS ORDERED: FentaNYL Citrate 50 MCG/ML 2 ML Injection IV PRN (05:25)
[2024-08-10] MEDS ORDERED: MethylPREDNISolone Sod Succ 125 MG Vial IV SCH (06:00)
[2024-08-10] MEDS ORDERED: DEXTROMETHORPHAN/BENZOCAINE 1 EACH LOZENGE MT PRN (06:40)
[2024-08-10] MEDS ORDERED: Guaifenesin/Dextromethorphan Syrup 5 ML UDC PO PRN (06:40)
[2024-08-10 07:12] LABS: BASOPHILS ABSOLUTE AUTO 0.03 K/mm3 (0.00-0.23); BASOPHILS PERCENT AUTO 0 % (0-2); EOSINOPHILS PERCENT AUTO 0 % (0-6); Hematocrit 19.3 % (33.0-51.0); IMMATURE GRAN ABSOLUTE AUTO 0.52 K/mm3 (0.00-0.10); IMMATURE GRAN PERCENT AUTO 2 % (0-1); LYMPHOCYTES ABSOLUTE AUTO 0.73 K/mm3 (0.84-5.20); LYMPHOCYTES PERCENT AUTO 3 % (21-46); MONOCYTES ABSOLUTE AUTO 0.24 K/mm3 (0.16-1.47); MONOCYTES PERCENT AUTO 1 % (4-13); Mean Corpuscular HGB 23.7 pg (26.0-34.0); Mean Corpuscular HGB Conc 30.6 g/dL (31.5-36.5); Mean Corpuscular Volume 78 fL (80-100); Mean Platelet Volume 10.9 fL (9.1-12.4); NEUTROPHILS ABSOLUTE AUTO 26.27 K/mm3 (1.96-9.15); NEUTROPHILS PERCENT AUTO 95 % (41-73); NRBC ABSOLUTE 0.02 K/mm3 (0.00-0.02); NRBC Auto 0.1 /100 WBC (0.0-0.2); Platelet Count 383 K/mm3 (150-400); RDW Coefficient Variation 17.9 % (11.7-14.2); RDW Standard Deviation 50.4 fL (35.1-46.3); Red Blood Cell Count 2.49 M/mm3 (3.80-5.20); White Blood Cell Count 27.79 K/mm3 (4.00-11.30)
[2024-08-10 07:15] LABS: Hemoglobin 5.9 g/dL (11.5-16.0)
--- NOTE | 2024-08-10 07:22 | NUR ---
SHIFT SUMMARY PT ARRIVES ON UNIT WITH CHEIF COMPLAINT OF SHORTNESS OF BREATH AND POSSIBLE SEPSIS. PT ON 7L NC. PT WAS UNWILLING TO BE PLACED ON BIPAP DUE TO ANXIETY ISSUES. PT AGREED TO BIPAP WHILE BLOOD WAS BEING TRANSFUSED. PT REQUESTS MEDICATION TO HELP WITH ANXIETY. SEE MAR FOR MEDICATION DETAILS. PT STATES THAT MEDICATION GIVEN DID NOT HELP HER, BUT SHE WAS ABLE TO TOLERATE BIPAP THROUGHOUT TRANSFUSION. PT IS INCONTINENT OF URINE AND HAS HAD TWO VOIDS THAT WERE UNMEASURED. PT APPEARS TO BE COMFORTABLE IN ROOM AND DROWSY AT THIS TIME. REPORT PASSED TO DAY SHIFT TEAM.
[2024-08-10 07:30] LABS: Albumin, Blood 2.4 g/dL (3.4-5.0); Albumin/Globulin Ratio 0.6 (0.8-1.8); Bilirubin, Total 0.5 mg/dL (0.1-1.0); Bun/Creatinine Ratio 17.3 (12.0-20.0); Calcium, Blood 8.9 mg/dL (8.5-10.1); Creatinine, Blood 1.27 mg/dL (0.40-1.00); Globulin, Blood 4.2 g/dL (2.2-4.0); Potassium, Blood 4.8 mmol/L (3.5-5.5); Total Protein, Blood 6.6 g/dL (6.4-8.2)
[2024-08-10 07:31] LABS: International Normalized Ratio 1.26; Prothrombin Time Results 13.3 Sec (9.7-11.5)
--- NOTE | 2024-08-10 08:43 | NUR ---
REPORT AT BEDSIDE, PT ON BIPAP, NEEDS NEXT UNIT OF BLOOD STARTED. BP STABLE, HR TACHY, RESP RATE DEEP, LABORED. LUNGS COARSE WITH RALES AND RHONCHI. PLACED ON CPAP BY RT. IN TO ROUND ON PATIENT, CHANGED BACK TO NC AT 5L. 2ND UNIT OF BLOOD INFUSING FOR 1 HOUR. TOLERATING WELL. RIGHT KNEE WITH DIME SIZE WOUND, TENDER. PT STATES THAT IT IS "CELLULITIS". THE AREA IS NOT RED NOR HOT IN TEMPERATURE. THE SKIN IS WHITE, SHINY AND TAUT. BILATERAL FEET WITH REDNESS, BLOTCHY, EXCORIATION. SHE IS REQUESTING PAIN MEDICATION, PT ONLY HAS FENTANYL ON MAY, TOO SOON FOR NEXT DOSE. PT IS BACK TO SLEEP ON HER BACK WITH HER MOUTH OPEN, RESTING. SHE IS ABLE TO MOVE AND REPOSITION HERSELF IN BED.
[2024-08-10 10:21] LABS: Percent Saturation 7.1 % (15.0-50.0)
[2024-08-10 11:09] LABS: Source, Urine Foley catheter
[2024-08-10] MEDS ORDERED: Albuterol 2.5 MG/3 ML VIAL INH PRN (11:15)
[2024-08-10] MEDS ORDERED: Ipratropium/Albuterol SulF 2.5-0.5MG/3 ML Amp INH SCH (11:15)
[2024-08-10 11:30] LABS: Appearance, Urine Clear (Clear); Bilirubin, Urine Neg (Neg); Blood, Urine Neg (Neg); Glucose Qualitative, Urine Neg (Neg); Ketones, Urine Neg (Neg); Leukocyte Esterase, Urine Neg (Neg); Nitrite, Urine Neg (Neg); Protein, Urine Neg (Neg); Urobilinogen, Urine NORM (Normal)
[2024-08-10 11:34] LABS: Color, Urine Pale Yellow (P-Yellow)
[2024-08-10] MEDS ORDERED: Mometasone/Formoterol MDI 200/5 mcg 13 GM INH SCH (11:35)
[2024-08-10 14:56] LABS: Hematocrit 26.8 % (33.0-51.0); Hemoglobin 8.5 g/dL (11.5-16.0)
[2024-08-10] MEDS ORDERED: Metoprolol Tartrate 1 MG/ML 5 ML VIAL IV ONE (15:25)
[2024-08-10] MEDS ORDERED: Pantoprazole Sodium 40 MG Injection IV SCH (16:30)
[2024-08-10] MEDS ORDERED: Sod Ferric Gluc Complx/Sucrose 125 MG in NS 100 ML IV SCH (18:00)
--- NOTE | 2024-08-10 18:31 | NUR ---
SHIFT SUMMARY: PT A&OX4, VOCALIZES NEEDS AND CALL LIGHT IS IN REACH. PT IS INCONTINENT AND HAS A PUREWICK IN PLACE ATTACHED TO SUCTION. PT WAS ABLE TO AMBULATE TO [facility] AND HAVE A BM. THE PATIENT IS SEVERELY ANEMIC AND HAD TWO BLOOD TRANFUSIONS ON OUR SHIFT, THREE TOTAL. PT IS CURRENTLY TRANSFUSING IRON AT 1835. PT IS SOB, DYSPNEIC, TACHYPNEIC, AND USING ACCESSORY MUSCLES. PT O2 >92% ON 3L VIA NC. LUNGS ARE COARSE, CONGESTED, AND DIMINISHED. BREATHING TX ARE Q2. PT IS TACHYCARDIC FOR DURATION OF SHIFT, ADMINISTERED METOPROLOL VIA IV, HR DECREASED TO 120S AND NOW BACK TO 140S-150S. PT HAS AN ULCER ON THE RIGHT KNEE AND BLE ABRASIONS. APPLIED BANDAGES AND HEEL PROTECTORS ON THE PATIENT. REMOVED PIV LAC AND PT NOW HAS A LFA AND LWR. WILL CONTINUE WITH PLAN OF CARE AND REPORT TO ONCOMING NURSE.
[2024-08-10 19:27] LABS: Hematocrit 27.1 % (33.0-51.0); Hemoglobin 8.7 g/dL (11.5-16.0)
[2024-08-10] MEDS ORDERED: Arginine/Glutamine/Calcium Hmb 1 Packet PO SCH (21:00)
[2024-08-11] VITALS (15 sets, daily range): BP systolic 107–145; BP diastolic 40–101
[2024-08-11] MEDS ORDERED: Benzonatate 100 MG Cap PO PRN (00:25)
[2024-08-11] MEDS ORDERED: Metoprolol Tartrate 1 MG/ML 5 ML VIAL IV ONE (00:45)
[2024-08-11 00:55] LABS: Hematocrit 27.5 % (33.0-51.0); Hemoglobin 8.9 g/dL (11.5-16.0)
[2024-08-11] MEDS ORDERED: Digoxin 0.25 MG/ML 2ML Amp IV ONE ×2 (02:25→08:30)
--- NOTE | 2024-08-11 02:27 | NUR ---
UPDATE CALLED DR. MCPHERSON ABOUT PATIENT'S HR AGAIN AFTER LOPRESSOR HE ORDERED DID NOTHING. HR IN THE 130-140'S. NEW ORDERS PUT IN PER DOCTOR.
[2024-08-11] MEDS ORDERED: Loperamide HCl 2 MG Cap PO PRN (03:25)
--- NOTE | 2024-08-11 06:07 | NUR ---
SHIFT SUMMARY PATIENT HAS NO SLEPT AT ALL ON THIS SHIFT. A&OX4. PATIENT HAS HAD 8 BOUTS OF DIARRHEA. MEDS ORDERED FROM DR. MCPHERSON FOR DIARRHEA. SBP 110-120'S AND HR IN THE 130-140'S NEW MEDS ORDERED SEE EMAR. PATIENT USES BEDSIDE COMMODE AND WHEN IN BED LIKES TO HAVE ATTENDS AND PUREWICK INPLACE. USES CALL LIGHT WHEN NEEDS SOMETHING. ON 3L OF O2 VIA NC. LEFT WRIST 20G IV AND LEFT FOREARM 20G IV BOTH SALINE LOCKED. CALL LIGHT WITHIN REACH.
--- NOTE | 2024-08-11 07:00 | NUR ---
ASSUMPTION OF CARE PT IS ALERT AND ORIENTED DURING BEDSIDE REPORT. SHE IS ON 3.5L NC. SINUS TACH ON MONITOR WITH RATE IN 130S-160S. INCREASES WITH EXERTION. SHE DENIES CP BUT DOES C/O SOB AT TIMES. PT HAS A COUGH BUT IS UNABLE TO EXPEL SPUTUM. BED IN LOW POSITION, CALL LIGHT WITHIN REACH.
[2024-08-11] MEDS ORDERED: Insulin Regular 100 UNIT/ML 10ML Vial SC SCH (07:30)
[2024-08-11 07:45] LABS: BASOPHILS ABSOLUTE AUTO 0.05 K/mm3 (0.00-0.23); BASOPHILS PERCENT AUTO 0 % (0-2); EOSINOPHILS PERCENT AUTO 0 % (0-6); Hematocrit 28.9 % (33.0-51.0); Hemoglobin 9.1 g/dL (11.5-16.0); IMMATURE GRAN ABSOLUTE AUTO 0.48 K/mm3 (0.00-0.10); IMMATURE GRAN PERCENT AUTO 2 % (0-1); LYMPHOCYTES ABSOLUTE AUTO 0.67 K/mm3 (0.84-5.20); LYMPHOCYTES PERCENT AUTO 3 % (21-46); MONOCYTES ABSOLUTE AUTO 0.73 K/mm3 (0.16-1.47); MONOCYTES PERCENT AUTO 3 % (4-13); Mean Corpuscular HGB 25.3 pg (26.0-34.0); Mean Corpuscular HGB Conc 31.5 g/dL (31.5-36.5); Mean Corpuscular Volume 80 fL (80-100); Mean Platelet Volume 10.5 fL (9.1-12.4); NEUTROPHILS ABSOLUTE AUTO 23.39 K/mm3 (1.96-9.15); NEUTROPHILS PERCENT AUTO 92 % (41-73); NRBC ABSOLUTE 0.09 K/mm3 (0.00-0.02); NRBC Auto 0.4 /100 WBC (0.0-0.2); Platelet Count 370 K/mm3 (150-400); RDW Coefficient Variation 18.1 % (11.7-14.2); RDW Standard Deviation 52.5 fL (35.1-46.3); White Blood Cell Count 25.32 K/mm3 (4.00-11.30)
[2024-08-11 08:08] LABS: Bun/Creatinine Ratio 22.5 (12.0-20.0); Calcium, Blood 10.2 mg/dL (8.5-10.1); Creatinine, Blood 0.67 mg/dL (0.40-1.00); Potassium, Blood 4.2 mmol/L (3.5-5.5)
[2024-08-11 08:13] LABS: BASOPHILS PERCENT MAN 0 % (0-2); EOSINOPHILS PERCENT MAN 0 % (0-6); LYMPHOCYTES ABSOLUTE MAN 0.25 K/mm3 (0.84-5.20); LYMPHOCYTES PERCENT MAN 1 % (21-46); METAMYELOCYTE ABSOLUTE MAN 0.25 K/mm3 (0.00-0.00); METAMYELOCYTE PERCENT MAN 1 % (0-0); MONOCYTES PERCENT MAN 0 % (4-13); NEUTROPHILS ABSOLUTE MAN 24.81 K/mm3 (1.96-9.15); SEG NEUTROPHILS PERCENT MAN 98 % (41-73); TOTAL CELLS COUNTED 100
[2024-08-11] MEDS ORDERED: POTCHL20ER PO (10:53)
[2024-08-11] MEDS ORDERED: SPIRIVA RESPIMAT4 G3 INH (10:54)
[2024-08-11] MEDS ORDERED: FLONASE ALLERG9.9 M2 (10:56)
[2024-08-11] MEDS ORDERED: DALIRESP250 MCG PO (10:57)
[2024-08-11] MEDS ORDERED: CILO100 PO (10:57)
[2024-08-11] MEDS ORDERED: LIDO5TO TOP (10:59)
[2024-08-11] MEDS ORDERED: Triamcinolone A15 G3 TOP (11:01)
[2024-08-11] MEDS ORDERED: UMECLIDINIUM INH (11:08)
[2024-08-11 11:37] LABS: Stool Occult Blood Guaiac 1 Neg (Neg)
[2024-08-11] MEDS ORDERED: OxyCODONE HCL 5 MG TAB PO PRN (13:45)
[2024-08-11] MEDS ORDERED: Pantoprazole Sodium 40 MG Tab PO SCH (16:30)
--- NOTE | 2024-08-11 18:35 | NUR ---
SHIFT SUMMARY PT IS ALERT AND ORIENTED, PARTICIPATES IN CARE ABLE. SHE SAT IN THE RECLINER FOR A FEW HOURS THIS AFTERNOON. SHE REMAINS ON 3.5L NC. C/O DYSPNEA WITH EXERTION AND WHILE COUGHING. PT HAS A MOIST NONPRODUCTIVE COUGH. MEDICATED PER EMAR AND RECEIVED TREATMENTS FROM RT. SINUS TACH ON MONITOR WITH RATE 100S-130S. MAP >65. CARDIOLOGY CONSULTED THIS MORNING. PT HAS TOLERATED PO INTAKE ALTHOUGH HAS DECREASED APPETITE. SHE CONTINUES TO HAVE LIQUID STOOL. PUREWICK IN PLACE. BED IN LOW POSITION, CALL LIGHT WITHIN REACH.
[2024-08-11] MEDS ORDERED: LevoFLOXacin 750 MG/D5W 150ML 150 ML IV SCH (21:00)
[2024-08-12] VITALS (11 sets, daily range): BP systolic 118–145; BP diastolic 53–65
[2024-08-12 04:12] LABS: BASOPHILS ABSOLUTE AUTO 0.03 K/mm3 (0.00-0.23); BASOPHILS PERCENT AUTO 0 % (0-2); EOSINOPHILS ABSOLUTE AUTO 0.01 K/mm3 (0.00-0.68); EOSINOPHILS PERCENT AUTO 0 % (0-6); Hemoglobin 9.3 g/dL (11.5-16.0); IMMATURE GRAN ABSOLUTE AUTO 0.62 K/mm3 (0.00-0.10); IMMATURE GRAN PERCENT AUTO 4 % (0-1); LYMPHOCYTES ABSOLUTE AUTO 0.86 K/mm3 (0.84-5.20); LYMPHOCYTES PERCENT AUTO 5 % (21-46); MONOCYTES ABSOLUTE AUTO 0.91 K/mm3 (0.16-1.47); MONOCYTES PERCENT AUTO 6 % (4-13); Mean Corpuscular HGB 25.6 pg (26.0-34.0); Mean Corpuscular Volume 83 fL (80-100); Mean Platelet Volume 10.9 fL (9.1-12.4); NEUTROPHILS ABSOLUTE AUTO 14.03 K/mm3 (1.96-9.15); NEUTROPHILS PERCENT AUTO 85 % (41-73); NRBC ABSOLUTE 0.14 K/mm3 (0.00-0.02); NRBC Auto 0.9 /100 WBC (0.0-0.2); Platelet Count 388 K/mm3 (150-400); RDW Coefficient Variation 18.5 % (11.7-14.2); RDW Standard Deviation 55.7 fL (35.1-46.3); Red Blood Cell Count 3.63 M/mm3 (3.80-5.20); White Blood Cell Count 16.46 K/mm3 (4.00-11.30)
[2024-08-12 04:25] LABS: Bun/Creatinine Ratio 28.6 (12.0-20.0); Calcium, Blood 10.2 mg/dL (8.5-10.1); Creatinine, Blood 0.49 mg/dL (0.40-1.00); Potassium, Blood 4.3 mmol/L (3.5-5.5)
--- NOTE | 2024-08-12 06:27 | NUR ---
Shift Summary Uneventful night , VSS , patient cooperative with care. Chronic pain treated with PRN medication to patient's satisfacation. No further compliants at this time.
--- NOTE | 2024-08-12 07:00 | NUR ---
Ellis of care Pt awake, oriented X 4, participating in care as able. Denies pain or distress at this time. Pt afebrile. Bilat LE tremulous at times with activity in bed. HR 100s ST with occ. PAC and PVC. BP stable.
--- NOTE | 2024-08-12 18:33 | NUR ---
SHIFT SUMMARY PT IMPROVING TODAY, ALERT/ORIENTED X 4, PARTICIPATING IN CARE ABLE, HR 90S-100S ST WITH OCC PAC/PVC. C/O GENERALIZED CHRONIC PAIN, MED GIVEN PER EMAR WITH ACCEPTABLE RESPONSE. CURRENTLY UP IN CHAIR, TOLERATED FOR LUNCH AND DINNER, THO POOR APPETITE. PO INTAKE ENCOURAGED. DENIES PAIN OR DISTRESS AT THIS TIME. ORDERS FOR PCU STATUS INITIATED.
[2024-08-12] MEDS ORDERED: Lactobacil 2-S.Thermo-Bifido 1 1 Cap PO SCH (21:00)
[2024-08-12] MEDS ORDERED: Melatonin 5 MG Tablet PO PRN (23:55)
[2024-08-13 03:55] LABS: Calcium, Blood 9.9 mg/dL (8.5-10.1); Creatinine, Blood 0.81 mg/dL (0.40-1.00); Potassium, Blood 4.1 mmol/L (3.5-5.5)
[2024-08-13 04:16] LABS: BASOPHILS PERCENT MAN 0 % (0-2); EOSINOPHILS PERCENT MAN 0 % (0-6); LYMPHOCYTES PERCENT MAN 15 % (21-46); MONOCYTES PERCENT MAN 6 % (4-13); MYELOCYTE PERCENT MAN 1 % (0-0); SEG NEUTROPHILS PERCENT MAN 78 % (41-73); TOTAL CELLS COUNTED 100
[2024-08-13 04:18] LABS: BASOPHILS ABSOLUTE AUTO 0.05 K/mm3 (0.00-0.23); BASOPHILS PERCENT AUTO 0 % (0-2); EOSINOPHILS ABSOLUTE AUTO 0.01 K/mm3 (0.00-0.68); EOSINOPHILS PERCENT AUTO 0 % (0-6); Hematocrit 29.7 % (33.0-51.0); Hemoglobin 8.9 g/dL (11.5-16.0); IMMATURE GRAN ABSOLUTE AUTO 0.75 K/mm3 (0.00-0.10); IMMATURE GRAN PERCENT AUTO 5 % (0-1); LYMPHOCYTES ABSOLUTE AUTO 1.94 K/mm3 (0.84-5.20); LYMPHOCYTES PERCENT AUTO 13 % (21-46); MONOCYTES ABSOLUTE AUTO 1.12 K/mm3 (0.16-1.47); MONOCYTES ABSOLUTE MAN 0.88 K/mm3 (0.16-1.47); MONOCYTES PERCENT AUTO 8 % (4-13); MYELOCYTE ABSOLUTE MAN 0.14 K/mm3 (0.00-0.00); Mean Corpuscular HGB 24.8 pg (26.0-34.0); Mean Corpuscular Volume 83 fL (80-100); Mean Platelet Volume 10.2 fL (9.1-12.4); NEUTROPHILS ABSOLUTE AUTO 10.85 K/mm3 (1.96-9.15); NEUTROPHILS ABSOLUTE MAN 11.48 K/mm3 (1.96-9.15); NEUTROPHILS PERCENT AUTO 74 % (41-73); NRBC ABSOLUTE 0.18 K/mm3 (0.00-0.02); NRBC Auto 1.2 /100 WBC (0.0-0.2); Platelet Count 360 K/mm3 (150-400); RDW Coefficient Variation 19.3 % (11.7-14.2); RDW Standard Deviation 57.2 fL (35.1-46.3); Red Blood Cell Count 3.59 M/mm3 (3.80-5.20); White Blood Cell Count 14.72 K/mm3 (4.00-11.30)
[2024-08-13 06:17] VITALS: BP 134/66
[2024-08-13 07:29] VITALS: BP 122/60
--- NOTE | 2024-08-13 07:46 | NUR ---
Assumed care of pt at 0700. Bedside report received from Natalie ALCOCER. Pt is A&O x 4. Answers questions, follows commands, verbalizes needs. Pleasant and cooperative with care. Pt states she does not feel back to baseline, but would like to go home today if the doctor approves. SpO2 97% with 2 LPM NC. Pt states she uses 1-3 LPM at baseline. Titrated down to 1 LPM - SpO2 92%.
[2024-08-13] MEDS ORDERED: [UNRECOGNIZED DRUG - OTHER] PO (10:53)
[2024-08-13] MEDS ORDERED: CORLANOR5 MG PO (13:25)
[2024-08-13] MEDS ORDERED: VISBIOME 112.51 EACH PO (13:26)
[2024-08-13] MEDS ORDERED: CEPH500 PO (13:27)
[2024-08-13 14:19] VITALS: BP 126/60
--- NOTE | 2024-08-13 15:48 | NUR ---
Discharged pt from unit at 1430. Education provided to pt, her son was also in the room. Pt already arranged PCP visit. Referral sent to gastroenterology per office request. Cardiology and IR follow ups scheduled. Medications sent to [facility]. Called pharmacy to ensure they have pt's new cardiac medication in stock. All belongings returned to patient and patient escorted into sons car. Pt wearing home O2, 1 LPM at time of discharge.
== END 2024-08-13 14:52 | disposition home health service (06) | DRG 871 ==
LOC: ER 22:30 → ICUE 08-10 00:23 → ERHOLD 08-10 00:23 → ICUE 08-10 01:28
PROVIDERS: Family Medicine; Student in an Organized Health Care Education/Training Program; ADMIT Internal Medicine
PROC: 30233N1 Transfusion of Nonautologous Red Blood Cells into Peripheral Vein, Percutaneous Approach (ICD-10-PCS; principal; 2024-08-10)
PROC: 3E03329 Introduction of Other Anti-infective into Peripheral Vein, Percutaneous Approach (ICD-10-PCS; 2024-08-10)
DX: A41.9 Sepsis, unspecified organism (principal); J18.9 Pneumonia, unspecified organism; J96.01 Acute respiratory failure with hypoxia; J96.02 Acute respiratory failure with hypercapnia; I50.22 Chronic systolic (congestive) heart failure; E87.1 Hypo-osmolality and hyponatremia; N17.9 Acute kidney failure, unspecified; J44.1 Chronic obstructive pulmonary disease with (acute) exacerbation; J44.0 Chronic obstructive pulmonary disease with (acute) lower respiratory infection; K92.2 Gastrointestinal hemorrhage, unspecified; I25.10 Atherosclerotic heart disease of native coronary artery without angina pectoris; E11.22 Type 2 diabetes mellitus with diabetic chronic kidney disease; N18.30 Chronic kidney disease, stage 3 unspecified; F32.9 Major depressive disorder, single episode, unspecified; F17.210 Nicotine dependence, cigarettes, uncomplicated; D63.1 Anemia in chronic kidney disease; R65.20 Severe sepsis without septic shock; I99.8 Other disorder of circulatory system; L89.521 Pressure ulcer of left ankle, stage 1; I25.5 Ischemic cardiomyopathy; F41.9 Anxiety disorder, unspecified; E78.5 Hyperlipidemia, unspecified; E11.51 Type 2 diabetes mellitus with diabetic peripheral angiopathy without gangrene; E11.622 Type 2 diabetes mellitus with other skin ulcer; L89.612 Pressure ulcer of right heel, stage 2; R00.0 Tachycardia, unspecified; I77.1 Stricture of artery; D50.9 Iron deficiency anemia, unspecified; G89.4 Chronic pain syndrome; L89.512 Pressure ulcer of right ankle, stage 2; Z88.0 Allergy status to penicillin; Z88.2 Allergy status to sulfonamides; Z88.5 Allergy status to narcotic agent; Z88.8 Allergy status to other drugs, medicaments and biological substances; Z91.018 Allergy to other foods; Z79.891 Long term (current) use of opiate analgesic; Z79.899 Other long term (current) drug therapy; Z88.1 Allergy status to other antibiotic agents; Z86.73 Personal history of transient ischemic attack (TIA), and cerebral infarction without residual deficits; Z79.51 Long term (current) use of inhaled steroids; Z79.01 Long term (current) use of anticoagulants; Z79.52 Long term (current) use of systemic steroids; Z95.1 Presence of aortocoronary bypass graft; Z98.890 Other specified postprocedural states; Z95.5 Presence of coronary angioplasty implant and graft; Z90.710 Acquired absence of both cervix and uterus; Z99.81 Dependence on supplemental oxygen
CPT/HCPCS: 36415; 36430; 71045; 73630; 76770; 80048; 80053; 81003; 82272; 82607; 82728; 82746; 82803; 82947; 83540; 83550; 83605; 83735; 83880; 85014; 85018; 85025; 85610; 86850; 86900; 86901; 86923; 87040; 93005; 93010; 93925; 94640; 94644; 94660; 94664; 94762; 96365; 96366; 96375; 97110; 97161; 97165; 97535; 99285-25; A9270; J0696; J1160; J1815; J1956; J2470; J2916; J2919; J3010; J3475; J7060; P9016